=== PATIENT | female | born 1985 | race Caucasian/White ===

== ENCOUNTER 2022-07-01 09:37 | Outpatient (CLI) | payer BC, SELFPAY ==
[2022-07-01 14:39] LABS: Albumin* 3.8 g/dL (3.3-5.0); Chloride* 105 mmol/L (96-114); Potassium* 4.7 mmol/L (3.6-5.1); Sodium* 138 mmol/L (135-149)
[2022-07-01 14:41] LABS: Cholesterol* 174 mg/dL (90-199); Creatinine* 0.6 mg/dL (0.5-1.5); Estimated Glomerular Filt Rate 120 ml/min
[2022-07-01 14:42] LABS: Alanine Aminotransferase* 41 U/L (4-35); Alkaline Phosphatase* 95 U/L (40-150); Aspartate Amino Transferase* 31 U/L (12-35); Bilirubin Total* 0.4 mg/dL (0.1-1.5); Blood Urea Nitrogen* 7 mg/dL (5-24); Calcium* 8.7 mg/dL (8.4-10.6); Carbon Dioxide* 24 mmol/L (20-32); Glucose* 93 mg/dL (60-115); Total Protein* 6.7 g/dL (6.0-8.3); Triglycerides* 139 mg/dL (40-149)
[2022-07-01 14:43] LABS: HDL Cholesterol* 38 mg/dL (>=50); LDL Cholesterol Calculated 108 mg/dL (<100)
[2022-07-01 15:10] LABS: TSH With Reflex to FT4* 0.817 uIU/mL (0.270-4.200)
== END 2022-07-01 09:38 | disposition home or self-care (01) ==
PROVIDERS: PCP Family Medicine; Visit Provider Family Medicine
DX: R06.00 Dyspnea, unspecified (principal); F41.9 Anxiety disorder, unspecified; Z13.29 Encounter for screening for other suspected endocrine disorder; Z13.6 Encounter for screening for cardiovascular disorders
CPT/HCPCS: 80053; 80061; 84443

== ENCOUNTER 2024-01-29 16:17 | Outpatient (CLI) | payer BC, SELFPAY | END 2024-01-29 16:18 | disposition home or self-care (01) | PROVIDERS: PCP Family Medicine; Visit Provider Internal Medicine | DX: H57.89 Other specified disorders of eye and adnexa (principal) | CPT/HCPCS: 80053; 84443; 86039 ==

== ENCOUNTER 2024-02-15 15:43 | Outpatient (CLI) | payer BC, SELFPAY ==
--- OUTSIDE RECORDS SUMMARY | 2024-02-16 07:05 | XMS_ITS | Referral Summary ---
Author Name Unknown Organization [facility] Address [address] [place] [address] Care Team Providers Care Undercollar Baster Name Role Phone Unknown, [facility], Unknown Unavailable Unavailable Allergies Active Allergy Reactions Criticality Noted Date Comments Kiwi Hives 08/15/2017 Seafood (Aurelio) Anaphylaxis 08/15/2017 Shell Fish Medications Medication Sig Dispensed Refills Start Date End Date Status fluticasone 250 mcg-salmeterol 50 mcg (ADVAIR) 250-50 mcg/dose Inhl DsDv diskus inhaler Inhale 1 puff Twice a Day. Active fluticasone (FLONASE) 50 mcg/actuation nasal spray Instill 2 sprays into EACH nare once daily. Active albuterol, conc: 2.5mg/3mL, (PROVENTIL, VENTOLIN) 2.5 mg /3 mL (0.083 %) Inhl nebulizer solution Inhale 2.5 mg every 6 (six) hours as needed. Active montelukast (SINGULAIR) 10 mg oral tablet Take 10 mg by mouth at bedtime. Active omeprazole (PRILOSEC) 20 mg oral delayed release capsule Take 20 mg by mouth once daily. Active PHENTERMINE HCL (PHENTERMINE ORAL) Take 37.5 mg by mouth once daily. Active albuterol HFA (PROVENTIL;VENTOLIN HFA) 90 mcg/actuation Inhl inhaler Inhale 2 puffs every 4 (four) hours as needed. Active cetirizine (ZYRTEC) 10 mg oral tablet Take 10 mg by mouth once daily. Active multivitamin (CERTAVITE) 18-400 mg-mcg oral tablet Take 1 tablet by mouth once daily. Active sertraline (ZOLOFT) 50 mg oral tablet Take 50 mg by mouth once daily. Active oxyCODONE-acetaminoph en (PERCOCET) 5-325 mg oral tablet Take 1-2 tablets by mouth every 4 (four) hours as needed for Pain 30 tablet 08/16/2017 Active Active Problems Problem Noted Date Diagnosed Date Menorrhagia with irregular cycle 08/16/2017 Severe dysmenorrhea 08/16/2017 Social History Tobacco Use Types Packs/Day Years Used Date Smoking Tobacco: Never Smokeless Tobacco: Never Alcohol Use Standard Drinks/Week Comments Yes 1 (1 standard drink = 0.6 oz pur e alcohol) Sex and Gender Information Value Date Recorded Sex Assigned at Not on file Gender Identity Not on file Sexual Orientation Not on file Last Filed Vital Signs Vital Sign Reading Time Taken Comments Blood Pressure 128/68 08/16/2017 5:45 PM CDT Pulse 80 08/16/2017 5:45 PM CDT Temperature 36.8 ??C (98.2 ??F) 08/16/2017 5:45 PM CD T Respiratory Rate 16 08/16/2017 5:45 PM CDT Oxygen Saturation 100% 08/16/2017 5:45 PM CDT Inhaled Oxygen Concentration - - Weight 101.8 kg (224 lb 8 oz) 08/16/2017 12:48 P M CDT Height 154.9 cm (5' 1) 08/16/2017 12:48 PM CDT Body Mass Index 42.42 08/16/2017 12:48 PM CDT Plan of Treatment Not on file Insurance Payer Benefit Plan / Group Subscriber ID Effect angeline Dates Phone Address Type [facility] [id number] 10/30/2016-Preskahlil nt [address] [place] [phone] O Care Teams Undercollar Baster Relationship Specialty Start Date End Date Unknown, NO ADDRESS/PHONE/FAX AFFILIATED PCP - General 08/16/17 Clinic, Unknown [place] PCP - Primary Care Clinic 08/16/17
--- OUTSIDE RECORDS SUMMARY | 2024-02-16 07:05 | XMS_ITS | Encounter Summary ---
Author Name Unknown Organization [facility] Address [address] [place] [address] Care Team Providers Care Job Interviewer Name Role Phone Ino Sheriff APRN, CNP Primary Care Provid er Reason for Visit * Reason Comments ERRONEOUS ENTRY Encounter Details Date Type Department Care Team (Late st Contact Info) Description 11/10/2015 Telephone [facility] [address] [facility] [place] [address] Ino Sheriff APRN, AIRCONDITIONING PLANT OPERATOR [id number] [place] [address] ERRONEOUS ENTRY Social History Tobacco Use Types Packs/Day Years Used Date Smoking Tobacco: Never Assessed Comments Yes Sex and Gender Information Value Date Recorded Sex Assigned at Not on file Gender Identity Not on file Sexual Orientation Not on file documented as of this encounter Nursing Notes * Sheila Acevedo - 11/10/2015 1:14 PM CST error AND CREAM GRADER documented in this encounter Plan of Treatment Not on file documented as of this encounter Visit Diagnoses Not on filedocumented in this encounter Care Teams Job Interviewer Relationship Specialty Start Date End Date Ino Sheriff APRN, CNP [address] [id number] PCP - General 02/27/13 documented as of this encounter
--- OUTSIDE RECORDS SUMMARY | 2024-02-16 07:05 | XMS_ITS | Clinical Summary ---
Author Name Unknown Organization [facility] Address [place], [place] [address] Care Team Providers Care Car Park Attendant Name Role Phone Health, Family Primary Care Provider Un[facility] e Allergies Active Allergy Reactions Criticality Noted Date Comments Sulfamethoxazole-Trimethoprim Hives 2013 Shellfish Derived Anaphylaxis High 07/06/2017 Medications Medication Sig Dispensed Refills Start Date End Date Status montelukast (SINGULAIR) 10 mg tablet Take 1 tablet by mouth at bedtime. 0 08/23/2011 Active loratadine (CLARITIN) 10 mg tablet Take 1 tablet by mouth once daily. 0 08/23/2011 Active albuterol (PROVENTIL) 0.083 % neb solutionIndications:U nspecified asthma(493.90) Inhale 3 mL via a nebulizer every 6 hours if needed for Shortness Of Breath. 1 box 3 10/21/2014 Active albuterol HFA (PRO-AIR,VENTOLIN,PRO VENTIL) 90 mcg/actuation inhalerIndications:As thma with acute exacerbation Inhale 2 Puffs by mouth every 4 hours if needed. 2 Inhaler 1 11/28/2014 Active ADVAIR DISKUS 250-50 mcg/dose diskus inhalerIndications:As thma with acute exacerbation INHALE 1 PUFF EVERY 12 HOURS DIRECTED 120 g 12 02/11/2015 Active sertraline (ZOLOFT) 50 mg tablet Take 1 tablet by mouth every morning. Taking once daily 90 tablet 3 03/21/2018 Active Active Problems Problem Noted Date Diagnosed Date Unspecified asthma(493.90) 08/25/2011 Allergic rhinitis, cause unspecified 08/25/2011 Immunizations Name Administration Dates Next Due Tdap 10/08/2008 Family History Medical History Relation Name Comments Osteoarthritis Father Stroke Maternal Grandmother Fibromyalgia Mother Mental illness Mother dep/anx Osteoarthritis Mother Relation Name Status Comments Daughter Alive Father Alive ARthritis, fibr omyalgia Maternal Grandmother Mother Alive Arthritis, fibr omyalgia. Asthma Sister (Age age 25) MVA Social History Tobacco Use Types Packs/Day Years Used Date Smoking Tobacco: Never Smokeless Tobacco: Never Tobacco Cessation:Counseling Given: Yes Alcohol Use Standard Drinks/Week Comments No 0 (1 standard drink = 0.6 oz pur e alcohol) PHQ-2 Answer Date Recorded PHQ-2 Score 0 12/31/2018 Sex and Gender Information Value Date Recorded Sex Assigned at Not on file Gender Identity Not on file Sexual Orientation Not on file Obstetrics History Para Term AB IAB SAB Ectopic Multiple Livin g Live Births 1 Date Outcome GA Total Labor Labor/2nd/3rd Weight Sex Delivery Anes PTL Olinda A1 A5 Name Cl in Comments:System Genera joanna. Please review and update details. Last Filed Vital Signs Vital Sign Reading Time Taken Comments Blood Pressure 148/87 03/21/2018 1:19 PM CDT Pulse 85 03/21/2018 1:19 PM CDT Temperature 36.8 ??C (98.2 ??F) 03/21/2018 1:19 PM CD T Respiratory Rate 16 03/21/2018 1:19 PM CDT Oxygen Saturation 97% 03/21/2018 1:19 PM CDT Inhaled Oxygen Concentration - - Weight 108 kg (238 lb) 03/21/2018 1:19 PM CDT Height 154.9 cm (5' 1) 03/21/2018 1:19 PM CDT Body Mass Index 44.97 03/21/2018 1:19 PM CDT Plan of Treatment Health Maintenance Due Date Last Done Comments HIV for age 15-65 2001 Hepatitis C screening for age 18-79 2004 Pap test for age 21-65 11/14/2014 2 (Completed outside of [facility]) Tetanus booster 10/08/2018 10/08/2008 BMI (ht and wt on same day) for age 18+ 03/21/2019 03/21/2018, 07/06/2017 Depression screening for age 12+ 03/21/2019 03/21/2018, 03/21/2018 COVID-19 vaccine series ( season) 2023 Influenza for age 9-49 06/30/2024 Tdap Completed 10/08/2008 Pneumococcal series for age 6-64 Aged Out No longer eligible based on patient's age to complete this topic Care Teams Car Park Attendant Relationship Specialty Start Date End Date Health, Family PCP - General 07/06/17
--- OUTSIDE RECORDS SUMMARY | 2024-02-16 07:05 | XMS_ITS | Clinical Summary ---
Author Name Unknown Organization Replaced by [facility] Address [address] [place] [address] Care Team Providers Care Accounting Recruiter Name Role Phone Ino Sheriff APRN, CNP Primary Care Provid er Source Comments You are receiving this document as you are listed as the primary care provider,follow-up provider, or the patient has been referred to you for consultation.This is in compliance with the Medicare and[facility] Hospitalca[facility] EHR Incentive Program,which states Providers who transition their patient to another setting of careor provider of care or refers their patient to another provider of care shouldprovide summary care record for each transition of care or referral. [facility] Allergies Active Allergy Reactions Criticality Noted Date Comments Shellfish-Derived Products Anaphylaxis High 01/23/20 13 Sulfamethoxazole-Trimethoprim Hives High 2013 Medications Medication Sig Dispensed Refills Start Date End Date Status mometasone (NASONEX) 50 MCG/ACT nasal solution Place 2 sprays into each nostril daily (every 24 hours). 03/17/2014 Active Multiple Vitamins-Minerals (MULTIVITAMIN ADULT OR) Take 1 tablet by mouth daily (every 24 hours). 04/12/2016 Active ALBUterol sulfate HFA 108 (90 BASE) MCG/ACT inhalerIndications:Mod erate persistent asthma without complication (HRC) Inhale 2 Puffs every 4 hours as needed for Wheezing. 3 Inhaler 4 10/03/2016 Active Phentermine HCl 37.5 MG TBDP Active Cetirizine HCl (ZYRTEC ALLERGY OR) Active sertraline (ZOLOFT) 50 MG tablet 06/17/2017 Active omeprazole (PRILOSEC) 20 MG capsule 06/17/2017 Active cyclobenzaprine (FLEXERIL) 10 MG tablet Take 10 mg by mouth. 07/06/2017 Active montelukast (SINGULAIR) 10 MG tabletIndications:Mode rate persistent asthma without complication (HRC) Take 1 Tab by mouth daily at bedtime. 90 Tab 2017 Active fluticasone-salmeterol (ADVAIR DISKUS) 250-50 MCG/DOSE diskus inhalerIndications:Mod erate persistent asthma without complication (HRC) Inhale 1 Puff two times a day. 1 Inhaler 05/25/2018 Active fluconazole (DIFLUCAN) 150 MG tablet 1 po today then repeat in 2 days 2 Tablet 1 06/28/2019 Active Active Problems Problem Noted Date Diagnosed Date Female pelvic pain 06/28/2017 Allergic rhinitis 03/17/2014 Resolved Problems Problem Noted Date Diagnosed Date Resolved Date Encounter for supervision of other normal 10/06/2015 04/12/2016 Hx of secondary hypertension 06/17/2015 04/12/2016 Obesity complicating pregnan cy in first trimester 06/17/2015 04/12/2016 Previous delivery a ffecting , antepartum 06/17/2015 04/12/2016 Encounter for other general counseling or advice on contraception 04/30/2014 03/20/2015 Overview: Other general counseling and advice for contraceptive management delivery delivered 08/27/2013 03/20/2015 Hypertension complicating 06/24/2013 03/20/2015 , supervision, normal, first 02/05/2013 03/20/2015 Asthma complicating , antepartum 02/05/2013 03/20/2015 Immunizations Name Administration Dates Next Due Flu Vac Preserv Free (3+yrs) 08/16/2012 Influenza IIV4 (Quadrivalent) 0.5mL (46714) 08/30,08/12/2015,09/03/2013 TDAP (BOOSTRIX) 10/26/2015,04/22/2013 Family History Medical History Relation Name Comments High Cholesterol Father Depression Mother Alzheimer's Maternal Grandfather Cancer, Uterine Maternal Grandmother Stroke Maternal Grandmother Cancer Paternal Grandfather Colon Diabetes Paternal Grandfather Heart Disease Paternal Grandfather High Cholesterol Paternal Grandfather Stroke Paternal Grandfather Depression Sister Mental Disorder Sister Relation Name Status Comments Father Alive Mother Alive Maternal Grandfather Maternal Grandmother Paternal Grandfather Paternal Grandmother Alive Sister Social History Tobacco Use Types Packs/Day Years Used Date Smoking Tobacco: Never Smokeless Tobacco: Never Alcohol Use Standard Drinks/Week Comments Yes 0 (1 standard drink = 0.6 oz pur e alcohol) rare Sex and Gender Information Value Date Recorded Sex Assigned at Not on file Gender Identity Not on file Sexual Orientation Not on file Last Filed Vital Signs Vital Sign Reading Time Taken Comments Blood Pressure 129/72 06/28/2019 2:21 PM CDT Pulse 92 06/28/2019 2:21 PM CDT Temperature 37 ??C (98.6 ??F) 06/28/2017 2:43 PM CDT Respiratory Rate 16 06/26/2017 5:19 PM CDT Oxygen Saturation 96% 06/26/2017 5:19 PM CDT Inhaled Oxygen Concentration - - Weight 103.4 kg (228 lb) 06/28/2019 2:21 PM CDT Height 154.9 cm (5' 1) 07/07/2017 11:50 AM CDT Body Mass Index 43.08 07/07/2017 11:50 AM CDT Plan of Treatment Health Maintenance Due Date Last Done Comments Hep C Screening (Preventive Services) 1986 Adult Preventive Visit 2004 HepB (1) 2005 Cervical Cancer Screening 07/07/20202016, 06/17/2015, 12/07/2012 COVID-19 Vaccine ( season) 2023 12/25/2020, 11/26/2020 Influenza (#1) 2023 09/12/2019, 07/01, 09/14/2016, Additional history exists DTaP/Tdap/Td (5 - Tdap) 10/26/2025 10/26/20 15, 04/22/2013, 10/08/2008, Additional history exists Zoster/Shingles (1 of 2) 2036 HPV Vaccine Completed 03/18/2008, 08/30, 05/15/2007 Pneumococcal Aged Out 10/08/2008 No longer eligi ble based on patient's age to complete this topic HIV Screening (Preventive Services) Completed 06/17/2015, 12/07/2012 HepA Aged Out No longer eligi ble based on patient's age to complete this topic Hib Aged Out No longer eligi ble based on patient's age to complete this topic IPV (Polio) Aged Out No longer eligi ble based on patient's age to complete this topic MCV4 Aged Out No longer eligi ble based on patient's age to complete this topic Procedures Procedure Name Priority Date/Time Associated Diagnosis Comments ANATOMICAL PATH LIQUID BASED Routine 07/07/2017 12:57 PM CDT HIV ANTIBODY Routine 06/17/2015 8:37 AM CDT Special screening examination for other specified viral diseases from Last 3 Months or Most Recently Relevant to Health Maintenance Results * Pap Smear (07/07/2017 12:57 PM CDT) 07/07/2017 12:5 7 PM CDT Narrative PN SOFT - 07/11/2017 3:31 PM CDT FINAL GYNECOLOGICAL CYTOLOGY REPORT Pathology #: [id number] ?Date Obtained: 07/07/2017 ? Date Received: 07/10/2017 INTERPRETATION/RESULTS: Negative for Intraepithelial Lesion or Malignancy. 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 SPECIMEN ADEQUACY: Satisfactory for Evaluation. ??No endocervical cells/transformation zone component present. Verified on 07/11/2017 ??by FRANK DIEZ (electronic signature) CLINICAL NOTES: ?Abnormal bleeding: No, LMP: 06/13/2017, Menstrual status: None ?Apply, Current form of therapy: None apply LIQUID BASED PAP SMEAR SPECIMEN TYPE: ?ROUTINE CERVICAL PAP TEST PLEASE NOTE: The pap smear is a screening test designed to aid in the detection of cervical cancer and its precursor lesions. It is not a diagnostic procedure and should not be used as the sole means of detecting cervical cancer. Both false-positive and false-negative reports may occur. Performed at [address] [address] Jeniffer Salcido MD LAB_1 Performing Organization Address [facility] de Phone Number PN MICHELLE [address] [place] [phone] * HIV ANTIBODY (06/17/2015 8:37 AM CDT) HIV 1/HIV 2 Non-React Non-Reacti ve HP CONVERSION 06/17/2015 8:37 AM CDT 06/17/2015 4:33 PM CDT Narrative HP CONVERSION - 06/17/2015 11:33 PM CDT Performed at [address] [address] Transcriptions 12/08/2016 4:35 AM CSTNotes Recorded by Anahi Loomis APRN, CNP on 06/18/2015 at 5:35 PMplease send normal results to LD. Pt will be informed at next visit Anahi Loomis APRN, CNP LAB_1 Performing Organization Address [facility] de Phone Number HP CONVERSION from Last 3 Months or Most Recently Relevant to Health Maintenance Care Teams Accounting Recruiter Relationship Specialty Start Date End Date Ino Sheriff, YEHUDA, SECURITY ASSURANCE SPECIALIST [address] [address] [place] [address] [facility] - General 02/27/13
--- OUTSIDE RECORDS SUMMARY | 2024-02-16 07:05 | XMS_ITS | Clinical Summary ---
Author Name Unknown Organization [facility] Address [address] [place] [address] Care Team Providers Care Spark Tester Name Role Phone Unknown, [facility], Unknown Unavailable Unavailable Allergies [...] 08/16/2017 12:48 PM CDT Plan of Treatment Health Maintenance Due Date Last Done Comments Hepatitis C Screening 1986 Pap Smear 1986 Anxiety Screening (BRANDT-2) 1987 Depression Assessment (PHQ-2) 1987 Adult Tetanus Booster 2005 COVID-19 Vaccine (2022-2 4 season) 2023 Influenza Vaccine (Season Ended) 2024 Pneumococcal <65 Aged Out No longer e ligible based on patient's age to complete this topic Insurance Payer Benefit Plan / Group Subscriber ID Effect angeline Dates Phone Address Type ALECIA Hinge [facility] ALECIA [id number] 10/30/2016-Prese nt [address] [place] [phone] PPO Care Teams Spark Tester Relationship Specialty Start Date End Date Unknown, NO ADDRESS/PHONE/FAX AFFILIATED PCP - General 08/16/17 Clinic, Unknown [place] PCP - Primary Care Clinic 08/16/17
== END 2024-02-15 15:44 | disposition home or self-care (01) ==
LOC: NFLDREF 02-16 07:01
PROVIDERS: PCP Family Medicine; Referring Provider Family Medicine; Visit Provider Internal Medicine
DX: H57.89 Other specified disorders of eye and adnexa (principal)
CPT/HCPCS: 86376; 86800

== ENCOUNTER 2024-02-28 16:24 | Outpatient (CLI) | payer BC, SELFPAY ==
--- OUTSIDE RECORDS SUMMARY | 2024-02-28 16:27 | XMS_ITS | Clinical Summary ---
Author Name Unknown Organization [facility] Address [place], [place] [address] Care Team Providers Care Radio Performer Name Role Phone Health, Family Primary Care [...] age to complete this topic Care Teams Radio Performer Relationship Specialty Start Date End Date Health, Family PCP - General 07/06/17
--- OUTSIDE RECORDS SUMMARY | 2024-02-28 16:27 | XMS_ITS | Encounter Summary ---
Author Name Unknown Organization [facility] Address [address] [place] [address] Care Team Providers Care Agricultural Research Director Name Role Phone Ino Sheriff APRN, CNP Primary Care Provid er Reason for Visit * Reason Comments ERRONEOUS ENTRY Encounter Details Date Type Department Care Team (Late st Contact Info) Description 11/10/2015 Telephone [facility] [address] [facility] [place] [address] Ino Sheriff APRN, FORENSIC MATERIALS ENGINEER [address] [address] [place] [address] ERRONEOUS ENTRY Social History Tobacco Use Types Packs/Day Years Used Date Smoking Tobacco: Never Assessed Comments Yes Sex and Gender Information Value Date Recorded Sex Assigned at Not on file Gender Identity Not on file Sexual Orientation Not on file documented as of this encounter Nursing Notes * Sheila Acevedo - 11/10/2015 1:14 PM CST error RMAN PRESIDENT AND CHIEF EXECUTIVE OFFICER documented in this encounter Plan of Treatment Not on file documented as of this encounter Visit Diagnoses Not on filedocumented in this encounter Care Teams Agricultural Research Director Relationship Specialty Start Date End Date Ino Sheriff APRN, CNP [address] [address] [place] [id number] PCP - General 02/27/13 documented as of this encounter
--- OUTSIDE RECORDS SUMMARY | 2024-02-28 16:27 | XMS_ITS | Clinical Summary ---
Author Name Unknown Organization [facility] Address [address] [place] [address] Care Team Providers Care Real Estate Valuer Name Role Phone Unknown, [facility], Unknown Unavailable Unavailable Allergies [...] Effect angeline Dates Phone Address Type [employer]LECIA Zscaler [facility] ALECIA [id number] 10/30/2016-Prese nt [address] [place] [phone] PPO Care Teams Real Estate Valuer Relationship Specialty Start Date End Date Unknown, NO ADDRESS/PHONE/FAX AFFILIATED PCP - General 08/16/17 Clinic, Unknown [place] PCP - Primary Care Clinic 08/16/17
--- OUTSIDE RECORDS SUMMARY | 2024-02-28 16:27 | XMS_ITS | Referral Summary ---
Author Name Unknown Organization [facility] Address [address] [place] [address] Care Team Providers Care Risk Management Director Name Role Phone Unknown, Primary Care [facility], Unknown Unavailable Unavailable Allergies Active [...] ID Effect angeline Dates Phone Address Type [facility] [id number] 10/30/2016-Preskahlil nt [address] [place] [phone] O Care Teams Risk Management Director Relationship Specialty Start Date End Date Unknown, NO ADDRESS/PHONE/FAX AFFILIATED PCP - General 08/16/17 Clinic, Unknown [place] PCP - Primary Care Clinic 08/16/17
--- OUTSIDE RECORDS SUMMARY | 2024-02-28 16:27 | XMS_ITS | Clinical Summary ---
Author Name Unknown Organization [facility] Address [address] [place] [address] Care Team Providers Care Wool Supplier Name Role Phone Ino Sheriff APRN, CNP Primary Care Provid er Source Comments You are receiving this document as you are listed as the primary care provider,follow-up provider, or the patient has been referred to you for consultation.This is in compliance with the Medicare and[facility] Cent[facility]aid EHR Incentive Program,which states Providers who transition their patient to another setting of careor provider of care or refers their patient to another provider of care shouldprovide summary care record for each transition of care or referral. [facility] Allergies Active Allergy Reactions Criticality Noted Date [...] Free (3+yrs) 08/16/2012 Influenza IIV4 (Quadrivalent) 0.5mL (88632) 08/30,08/12/2015,09/03/2013 TDAP (BOOSTRIX) 10/26/2015,04/22/2013 Family History Medical [...] CDT FINAL GYNECOLOGICAL CYTOLOGY REPORT Pathology #: [id number] ?Date Obtained: 07/07/2017 ? Date Received: 07/10/2017 [...] and false-negative reports may occur. Performed at [address] [address] Jeniffer Salcido MD LAB_1 Performing Organization Address [facility] de Phone Number PN MICHELLE [address] [place] [phone] * HIV ANTIBODY (06/17/2015 8:37 AM CDT) HIV 1/HIV 2 Non-React Non-Reacti ve HP CONVERSION 06/17/2015 8:37 AM CDT 06/17/2015 4:33 PM CDT Narrative HP CONVERSION - 06/17/2015 11:33 PM CDT Performed at [address] [address] Transcriptions 12/08/2016 4:35 AM CSTNotes Recorded by Anahi Loomis APRN, CNP on 06/18/2015 at 5:35 PMplease send normal results to LD. Pt will be informed at next visit Anahi Loomis APRN, CNP LAB_1 Performing Organization Address [facility] de Phone Number HP CONVERSION from Last 3 Months or Most Recently Relevant to Health Maintenance Care Teams Wool Supplier Relationship Specialty Start Date End Date Ino Sheriff, YEHUDA, PROFESSOR SCULPTURE [address] [place] [address] [facility] - General 02/27/13
--- NOTE | 2024-02-28 17:00 | US_ITS ---
Patient: KEYA THRASHER Facility:?[facility] Patient ID:?[id number] Site Patient ID:?[id number]. Site :?1985 Study:?US-Thyroid THYROID-02/28/2024 4:55:08 PM Ordering Physician:?MAREN OCONNOR M.D. Final Report: INDICATION: Dysphagia COMPARISON: 11/17/2011 TECHNIQUE: Quiroz scale and color Doppler images were acquired of the thyroid gland. FINDINGS: The thyroid gland demonstrates mildly heterogeneous echogenicity and has a smooth outer contour. Tiny cystic nodules are present bilaterally. The isthmus measures 5.8 millimeters. The right lobe measures 5.0 x 1.5 x 2.1 cm and the left lobe measures 4.7 x 1.7 x 2.1 cm in size. The color Doppler images demonstrate normal vascularity. There is no evidence of cervical lymphadenopathy or parathyroid mass. IMPRESSION: No thyromegaly or suspicious thyroid nodule. Dictated by Alex Oropeza MD @ 02/29/2024 10:15:57 AM Signed by:?Alex Oropeza MD @02/29/2024 10:15:57 AM (Electronic Signature)
== END 2024-02-28 16:25 | disposition home or self-care (01) ==
LOC: US 16:25
PROVIDERS: PCP Family Medicine; Visit Provider Family Medicine
DX: E04.1 Nontoxic single thyroid nodule (principal); R13.10 Dysphagia, unspecified
CPT/HCPCS: 76536

== ENCOUNTER 2024-07-13 18:10 | Emergency (ER) | payer BC, SELFPAY ==
[2024-07-13] VITALS (10 sets, daily range): BP systolic 137–157; BP diastolic 91–105; PULSE 74–92; RESP 16–18; TEMP 36.1; O2SAT 97–100; BMI 47.2
--- NOTE | 2024-07-13 18:51 | ED_ITS ---
HPI - Chest Pain General Chief Complaint: Chest Pain Stated Complaint: Chest pressure, short of breath, tightness in jaw Time Seen by Provider: 07/13/24 18:13 History of Present Illness HPI narrative: This 38-year-old female comes in reporting chest discomfort that is been occurring randomly on and off over the past week or 2. She states that it is not at all related to exertion. She can tolerate activity rather well without symptoms. She states that sometime she has awoke in the night with chest discomfort in her upper mid chest. She does experience some nausea and at times feels lightheaded. She also feels like it is difficult to breathe. She states that she does have a history of asthma symptoms but states that she does not feel like it is related to asthma. She also took a anxiety medicine that did not provide any relief. She states that she has had some reflux symptoms in the past and reports that these symptoms may be related to her GI track. She does not have any cardiac risk factors except she states that her mother did have heart disease but was older than age 55 when this began. Related Data Home Medications ?Medication ?Instructions ?Recorded ?Confirmed albuterol sulfate 2.5 mg/0.5 mL 2.5 mg inhalation .Q4H PRN 07/01/22 02/19/24 solution for nebulization cetirizine 10 mg tablet (Zyrtec) 10 mg PO QDAY 07/01/22 02/19/24 fluticasone propionate 50 1 spray intranasal QDAY 07/01/22 07/13/24 mcg/actuation nasal spray,suspension (Flonase Allergy Relief) ipratropium 0.5 mg-albuterol 3 mg 3 ml inhalation QID PRN 07/01/22 02/19/24 (2.5 mg base)/3 mL nebulization soln multivitamin 1 tab PO QDAY 07/01/22 02/19/24 loratadine 10 mg tablet (Allergy 10 mg PO DAILY 07/13/24 07/13/24 Relief (loratadine)) Previous Rx's ?Medication ?Instructions ?Recorded albuterol sulfate 90 mcg/actuation See Rx Instructions .Route 02/19/24 aerosol inhaler (Ventolin HFA) .COMPLEX #8.5 grams fluticasone 500 mcg-salmeterol 50 1 inh inhalation BID #60 ea 02/19/24 mcg/dose blistr powdr for inhalation (Advair Diskus) montelukast 10 mg tablet 10 mg PO QDAY #90 tabs 02/19/24 pantoprazole 20 mg tablet,delayed 20 mg PO DAILY #20 tabs 07/13/24 release (Protonix) Allergies Allergy/AdvReac Type Severity Reaction Status Date / Time carrot Allergy Severe Verified 07/13/24 18:18 kiwi Allergy Severe throat Verified 07/13/24 18:18 swelling shellfish derived Allergy Severe Anaphylaxis Verified 07/13/24 18:18 iodine Allergy Unknown Unknown Verified 07/13/24 18:15 Review of Systems Status of ROS Reports: 10 or more systems reviewed and unremarkable except as noted in History and below Narrative Constitutional: No fevers, no weight gain or loss. Eyes: No discharge. No vision changes. HENT: No congestion, no sore throat, no ear pain. Cardiovascular: No palpitations. Respiratory: No wheezes, no cough. Gastrointestinal: No abdominal pain, no vomiting, no diarrhea. Genitourinary: No dysuria, no hematuria. Musculoskeletal: Normal range of motion. Skin: No rashes, no pruritis. Neurological: No dizziness, weakness, sensory change, speech change. Endo/Heme/Allergies: No bruising or bleeding. No polydipsia. Pysch: no suicidality, no anxiety, no insomnia. All other systems reviewed and are negative. [facility] Medical History (Updated 07/13/24 @ 19:53 by Warren Cueva MD) GERD (gastroesophageal reflux disease) ?K21.9 - Gastro-esophageal reflux disease without esophagitis (ICD-10) Eye swelling ?H57.89 - Other specified disorders of eye and adnexa (ICD-10) Thyroid nodule ?E04.1 - Nontoxic single thyroid nodule (ICD-10) Obesity ?E66.9 - Obesity, unspecified (ICD-10) Seasonal allergies ?J30.2 - Other seasonal allergic rhinitis (ICD-10) Surgical History (Updated 01/26/24 @ 11:16 by Cindy Galloway) History of 2 sections ?Z98.891 - History of uterine scar from previous surgery (ICD-10) Status post hysterectomy ?Z90.710 - Acquired absence of both cervix and uterus (ICD-10) Status post cholecystectomy (09/02/06) ?Z90.49 - Acquired absence of other specified parts of digestive tract (ICD- 10) Status post appendectomy ?Z90.49 - Acquired absence of other specified parts of digestive tract (ICD- 10) Family History (Updated 01/26/24 @ 11:09 by Cindy Galloway) Father High cholesterol Mother Depression Other Colon cancer Diabetes Social History (Updated 02/20/24 @ 13:04 by Lizzette Peng~[facility], HORTICULTURE SUPERVISOR) What is your current living situation?: I presently have a place to live Problems where you live: no known problems In the past 12 months, utilities in danger of being shut off: no In past 12 months, lack of transportation kept you from medical appts, meetings, work, or getting things needed for daily living: no In the past 12 mos, have been you worried that your food would run out before you had money to buy more?: never true In the past 12 mos, the food you bought just didn't last and you didn't have money to buy more?: never true Smoking Status: Never smoker How often does anyone, including family, friends and others, physically hurt you : never How often does anyone, including family, friends and others, insult or talk down to you: never How often does anyone, including family, friends and others, threaten you with harm: never How often does anyone, including family, friends and others, scream or curse at you: never Little interest or pleasure in doing things: not at all Feeling down, depressed, or hopeless: not at all Exam Narrative Exam Narrative: Constitutional: Well-developed, well-nourished, no acute distress. HEENT: Normocephalic, atraumatic. Neck: Normal range of motion. Nontender. Supple. Heart: Regular. No murmurs. Normal rate. Intact distal pulses. Lungs: Clear to auscultation. No chest discomfort. No wheezes, rhonchi, or rales. Abdomen: Normal bowel sounds. Nontender. No rebound tenderness. Genitalia: Deferred. Back: No midline tenderness. Normal range of motion. Extremities: Normal range of motion. No injury. Skin: Intact. No rash. Warm. No erythema or pallor. Neurologic: No altered sensation. No weakness. Alert and oriented. Psychiatric: No suicidality. No anxiety or depression. No insomnia. Nursing notes and vitals signs are reviewed. Const Vital Signs, click to edit/add: Vital Signs - 24 hr 07/13/24 18:18 Temperature 97 F L Pulse Rate [Pulse Oximeter] 81 Respiratory Rate 18 Blood Pressure [Right Forearm] 145/103 H Pulse Oximetry 100 Oxygen Delivery Method Room Air Course Vital Signs Vital signs: Initial Vital Signs Temperature 97 F L 07/13/24 18:18 Temperature Source Temporal Artery Scan 07/13/24 18:18 Pulse Rate 81 07/13/24 18:18 Pulse Rhythm Regular 07/13/24 18:18 Respiratory Rate 18 07/13/24 18:18 Blood Pressure 145/103 H 07/13/24 18:18 Blood Pressure Mean 117 H 07/13/24 18:18 Blood Pressure Position Semi-Fowlers 07/13/24 18:18 Pulse Oximetry 100 07/13/24 18:18 Oxygen Delivery Method Room Air 07/13/24 18:18 Vital Signs Temperature 97 F L 07/13/24 18:18 Pulse Rate 81 07/13/24 18:18 Respiratory Rate 18 07/13/24 18:18 Blood Pressure 145/103 H 07/13/24 18:18 Pulse Oximetry 100 07/13/24 18:18 Oxygen Delivery Method Room Air 07/13/24 18:18 Temperature 97 F L 07/13/24 18:18 Pulse Rate 81 07/13/24 18:18 Respiratory Rate 18 07/13/24 18:18 Blood Pressure 145/103 H 07/13/24 18:18 Pulse Oximetry 100 07/13/24 18:18 Oxygen Delivery Method Room Air 07/13/24 18:18 MDM - Chest Pain MDM Narrative Medical decision making narrative: This 38-year-old female reports some intermittent chest pains as described above. She is not displaying any kind of exertional symptoms and currently has normal vital signs and normal exam. Her pain is not reproducible and is is located in her upper central chest typically. She does wonder if it may be some reflux symptoms. EKG shows normal sinus rhythm. Labs are a also acquired and these all returned with normal results including a troponin that returns at 0. I also used bedside ultrasound to do screening looks at her heart and lungs and these findings were also completely normal. This was reassuring to the patient. She is okay to be discharged home and encouraged use [id number] medicines as needed and directed. Lab Data Labs: Lab Results 07/13/24 Range/Units 19:00 WBC 9.78 (4.50-11.00) K/uL RBC 4.97 (4.00-5.20) m/uL Hgb 13.7 (12.0-16.0) gm/dL Hct 41.9 (33.0-51.0) % MCV 84 (80-100) fL MCH 28 (26-34) pg MCHC 33 (32-36) gm/dL RDW Coeff of Ross 13.2 (11.5-15.5) % Plt Count 115 L (140-440) K/uL Neut % (Auto) 65.3 (42.0-72.0) % Lymph % (Auto) 26.2 (20-44) % [place] % (Auto) 5.3 (0.0-11.0) % Eos % (Auto) 2.4 (0.0-7.0) % Baso % (Auto) 0.5 (0.0-3.0) % Neut # (Auto) 6.39 (1.7-7.0) K/uL Lymph # (Auto) 2.56 (0.90-2.90) K/uL [place] # (Auto) 0.50 (0.00-0.90) K/UL Eos # (Auto) 0.23 (0.00-0.50) K/uL Baso # (Auto) 0.05 (0.00-0.30) K/uL Abs Immat Gran (auto) 0.03 (0.00-0.30) K/uL Imm/Tot Granulo (auto) 0.3 % Sodium 140 (135-149) mmol/L Potassium 3.7 (3.6-5.1) mmol/L Chloride 105 (96-114) mmol/L Carbon Dioxide 26 (20-32) mmol/L Anion Gap 9 (7-15) mEq/L BUN 11 (5-24) mg/dL Creatinine 0.6 (0.5-1.5) mg/dL Estimated Creat Clear 96.87 Estimated GFR 118 ml/min Glucose 95 (60-115) mg/dL Calcium 8.6 (8.4-10.6) mg/dL POC Troponin I 0.00 L (0.01-0.04) ng/ml ECG Data Attestation: I personally reviewed and interpreted this ECG as follows: Interpretation: Normal sinus rhythm. Rate is 76 beats per minute. There are no ST or T-wave abnormalities. Discharge Plan Discharge Clinical Impression: Atypical chest pain Patient Disposition: Home, Self-Care Condition: Stable Additional Instructions: Use omis-rkw-ilnvjrl medicines as needed and directed. Take Protonix as prescribed. Activity as tolerated. Follow up with MD return if worsening. Prescriptions: New pantoprazole [Protonix] 20 mg tablet,delayed release (DR/EC) 20 mg PO DAILY Qty: 20 2RF No Action ipratropium-albuterol 0.5 mg-3 mg(2.5 mg base)/3 mL solution for nebulization 3 ml inhalation QID PRN albuterol sulfate 2.5 mg/0.5 mL solution for nebulization 2.5 mg inhalation .Q4H PRN Rx Instructions: for up to 3 doses fluticasone propionate [Flonase Allergy Relief] 50 mcg/actuation s pray,suspension 1 spray intranasal QDAY Rx Instructions: administer into each nostril multivitamin Tablet 1 tab PO QDAY cetirizine [Zyrtec] 10 mg tablet 10 mg PO QDAY albuterol sulfate [Ventolin HFA] 90 mcg/actuation HFA aerosol inhaler See Rx Instructions .ROUTE .COMPLEX Qty: 8.5 3RF Dose Instruction: INHALE 2 PUFFS EVERY 4 HOURS NEEDED Rx Instructions: INHALE 2 PUFFS EVERY 4 HOURS NEEDED fluticasone propion-salmeterol [Advair Diskus] 500-50 mcg/dose blister with device 1 inh inhalation BID Qty: 60 11RF montelukast 10 mg tablet 10 mg PO QDAY Qty: 90 3RF loratadine [Allergy Relief (loratadine)] 10 mg tablet 10 mg PO DAILY Follow Up/Referrals: Warren Morataya MD [Primary Care Provider] - Stand Alone [facility]: [facility] Info Instructions Procedures Ultrasound Cardiac exam #1: Anatomical areas examined: subxiphoid, parasternal long and parasternal short Indications: chest pain Exam type: limited transthoracic echocardiogram Impression: negative exam
--- OUTSIDE RECORDS SUMMARY | 2024-07-13 18:55 | XMS_ITS | Clinical Summary ---
Author Organization [place] Address [address] [facility] [address] Care Team Providers Care Chief Mate Name Role Phone Richard Bustamante MD Unavailable [phone] Janes Franklin MD Unavailable Francisco Elizalde MD Primary Care Provider Janes Franklin MD Unavailable [phone] Allergies Active Allergy Reactions Criticality Noted Date Comments Shellfish Allergy Anaphylaxis High 05/16/2013 Medications Medication Sig Dispensed Refills Start Date End Date Status Montelukast Sodium (SINGULAIR PO) Active Fluticasone-Salmetero l (ADVAIR DISKUS IN) Acti ve Cetirizine HCl (ZYRTEC PO) Active fluticasone (FLONASE) 50 MCG/ACT nasal spray [place] 2 sprays into both nostrils daily Active Active Problems Problem Noted Date Diagnosed Date Indication for care in labor or delivery 016 Labor and delivery, indication for care 12/25/19 16 Resolved Problems Problem Noted Date Diagnosed Date Resolved Date Encounter for triage in patient 12/03/2015 12/25/2015 Abdominal cramping 11/21/2015 6 Indication for care in labor and delivery, antepartum 07/10/2013 12/25/2015 Indication for care in labor or delivery 06/30/2013 12/25/2015 labor 05/16/2013 12/25/2015 Immunizations Name Administration Dates Next Due Influenza Vaccine >6 months,quad, PF 08/12/2015 TDAP (Adacel,Boostrix) 10/26/2015 Family History Medical History Relation Comments Glaucoma No family hx of Macular Degeneration No family hx of Social History Tobacco Use Types Packs/Day Years Used Date Smoking Tobacco: Never Smokeless Tobacco: Never Tobacco Cessation:Counseling Given: No Alcohol Use Standard Drinks/Week Comments No 0 (1 standard drink = 0.6 oz pur e alcohol) Adolescent Education Answer Date Record ed Getting School Help Needed Not on file 02/25 Sex and Gender Information Value Date Recorded Sex Assigned at Not on file Gender Identity Not on file Sexual Orientation Not on file Last Filed Vital Signs Vital Sign Reading Time Taken Comments Blood Pressure 137/68 04/15/2016 10:00 PM CDT Pulse 73 04/15/2016 8:36 PM CDT Temperature 36.3 ??C (97.3 ??F) 04/15/2016 8:36 PM CD T Respiratory Rate 16 04/15/2016 10:0 6 PM CDT Oxygen Saturation 97% 04/15/2016 10: 00 PM CDT Inhaled Oxygen Concentration - - Weight 110.3 kg (243 lb 3.2 oz) 01/15/2016 3:00 PM CDT Height 154.9 cm (5' 1) 01/15/2016 3:00 PM CDT Body Mass Index 45.95 01/15/2016 3:00 PM CDT Plan of Treatment Health Maintenance Due Date Last Done Comments ADVANCE CARE PLANNING 1986 ANNUAL REVIEW OF HM ORDERS 1986 GLUCOSE 1986 YEARLY PREVENTIVE VISIT 1986 HEPATITIS C SCREENING 2004 HEPATITIS B IMMUNIZATION (1 of 3 - 19+ 3-dose series) 2005 PAP 2007 COVID-19 Vaccine ( season) 2024 12/25/2020, 11/26/2020 INFLUENZA VACCINE (#1) 2024 9, 07/27/2017, 09/14/2016, Additional history exists DTAP/TDAP/TD IMMUNIZATION (5 - Td or Tdap) 10/26/2025 10/26/2015, 04/22/2013, 10/08/2008, Additional history exists HPV IMMUNIZATION Completed 03/18/2008, , 05/15/2007 Pneumococcal Vaccine: Pediatrics (0 to 5 Years) and At-Risk Patients (6 to 64 Years) Aged Out 10/08/2008 No longer eligible based on patient's age to complete this topic HIV SCREENING Completed 06/17/2015, 12/07/2012 PHQ-2 (once per calendar year) Completed 03/20/2024 MENINGITIS IMMUNIZATION Aged Out No l onger eligible based on patient's age to complete this topic RSV MONOCLONAL ANTIBODY Aged Out No l onger eligible based on patient's age to complete this topic Procedures Procedure Name Priority Date/Time Associated Diagnosis Comments HIV ANTIGEN ANTIBODY COMBO Routine 06/17/2015 from Last 3 Months or Most Recently Relevant to Health Maintenance Results * HIV Antigen Antibody Combo (06/17/2015) HIV Antigen Antibody Combo Nonreactive Blood specimen (specimen) Patient Reported LAB - BLOOD ORDERABL ES from Last 3 Months or Most Recently Relevant to Health Maintenance Care Teams Chief Mate Relationship Specialty Start Date End Date Francisco Elizalde MD [facility] [address] [place] [address] PCP - General 03/19/24 Richard Busatmante MD [facility] [address] [place] [address] Family Medicine 02/23/24 Janes Franklin MD [address] [place] [id number] Ophthalmology 02/29/24 Janes Franklin MD [address] [place] [id number] Assigned Surgical Provider 04/21/24
--- OUTSIDE RECORDS SUMMARY | 2024-07-13 18:55 | XMS_ITS | Clinical Summary ---
Author Organization [facility] Address [place], [place] [address] Care Team Providers Care Tinner Automatic Name Role Phone Health, Family Primary Care [...] Outcome GA Total Labor Labor/2nd/3rd Weight Sex Type Anes PTL Olinda A1 A5 Name Clin Comments:System Genera joanna. Please review and update [...] 03/21/2018, 03/21/2018 COVID-19 vaccine series ( season) 2024 Influenza for age 9-49 06/30/2024 Tdap Completed 10/08/2008 Pneumococcal series for age 6-64 Aged Out No longer eligible based on patient's age to complete this topic Care Teams Tinner Automatic Relationship Specialty Start Date End Date Health, Family PCP - General 07/06/17
--- OUTSIDE RECORDS SUMMARY | 2024-07-13 18:55 | XMS_ITS | Clinical Summary ---
Author Organization [facility] Address [address] [place] [address] Care Team Providers Care Substance Abuse Clinician Name Role Phone Ino Sheriff APRN, CNP Primary Care Provid er Source Comments You are receiving this document as you are listed as the primary care provider,follow-up provider, or the patient has been referred to you for consultation.This is in compliance with the Medicare and[facility] EHR Incentive Program,which states Providers who transition their patient to another setting of careor provider of care or refers their patient to another provider of care shouldprovide summary care record for each transition of care or referral. Closetbox Allergies Active Allergy Reactions Criticality Noted Date [...] counseling or advice on contraception 04/30/2014 03/20/2015 Overview (06/21/2017): Other general counseling and advice for contraceptive management delivery delivered 08/27/2013 03/20/2015 Hypertension complicating 06/24/2013 03/20/2015 , supervision, normal, first 02/05/2013 03/20/2015 Asthma complicating , antepartum 02/05/2013 03/20/2015 Immunizations Name Administration Dates Next Due Flu Vac Preserv Free (3+yrs) 08/16/2012 Influenza IIV4 (Quadrivalent) 0.5mL (69819) 08/30,08/12/2015,09/03/2013 TDAP (BOOSTRIX) 10/26/2015,04/22/2013 Family History Medical [...] 07/07/20202016, 06/17/2015, 12/07/2012 COVID-19 Vaccine ( season) 2024 12/25/2020, 11/26/2020 Influenza (#1) 2024 09/12/2019, 07/01, 09/14/2016, Additional history exists DTaP/Tdap/Td [...] CDT FINAL GYNECOLOGICAL CYTOLOGY REPORT Pathology #: [id number] ?Date Obtained: 07/07/2017 ? Date Received: 07/10/2017 [...] and false-negative reports may occur. Performed at [facility], [address] [place] [id number] Jeniffer Salcido MD LAB_1 Performing Organization Address [facility] de Phone Number PATITO MARTINEZ [address] [place] [address] * HIV ANTIBODY (06/17/2015 8:37 AM CDT) HIV 1/HIV 2 Non-React Non-Reacti ve HP CONVERSION 06/17/2015 8:37 AM CDT 06/17/2015 4:33 PM CDT Narrative HP CONVERSION - 06/17/2015 11:33 PM CDT Performed at [address] [address] Transcriptions 12/08/2016 4:35 AM CSTNotes Recorded by Anahi Loomis APRN, CNP on 06/18/2015 at 5:35 PMplease send normal results to LD. Pt will be informed at next visit Anahi Loomis APRN, CNP LAB_1 Performing Organization Address [facility] de Phone Number HP CONVERSION from Last 3 Months or Most Recently Relevant to Health Maintenance Care Teams Substance Abuse Clinician Relationship Specialty Start Date End Date Ino Sheriff APRN, SHAHRAM [address] [address] [address] [facility] - General 02/27/13
--- OUTSIDE RECORDS SUMMARY | 2024-07-13 18:55 | XMS_ITS | Referral Summary ---
Author Organization [place] Address [address] [place] [address] Care Team Providers Care City Auditor Name Role Phone Richard Bustamante MD Unavailable [phone] Janes Franklin MD Unavailable [phone] Francisco Elizalde MD Primary Care Provider Janes Franklin MD Unavailable [phone] Allergies Active Allergy Reactions Criticality Noted Date Comments Shellfish Allergy Anaphylaxis High 05/16/2013 Medications Medication Sig Dispensed Refills Start Date End Date Status Montelukast Sodium (SINGULAIR PO) Active Fluticasone-Salmetero l (ADVAIR DISKUS IN) Acti ve Cetirizine HCl (ZYRTEC PO) Active fluticasone (FLONASE) 50 MCG/ACT nasal spray [place] 2 sprays into both nostrils daily Active [...] >6 months,quad, PF 08/12/2015 TDAP (Adacel,Boostrix) 10/26/2015 Social History Tobacco Use Types Packs/Day Years [...] 01/15/2016 3:00 PM CDT Plan of Treatment Not on file Procedures Procedure Name Priority Date/Time Associated Diagnosis Comments HIV ANTIGEN ANTIBODY COMBO Routine 06/17/2015 from Last 3 Months or Most Recently Relevant to Health Maintenance Results * HIV Antigen Antibody Combo (06/17/2015) HIV Antigen Antibody Combo Nonreactive Blood specimen (specimen) Patient Reported LAB - BLOOD ORDERABL ES from Last 3 Months or Most Recently Relevant to Health Maintenance Care Teams City Auditor Relationship Specialty Start Date End Date Francisco Elizalde MD [facility] [address] [place] [address] PCP - General 03/19/24 Richard Bustamante MD [facility] [address] [place] [address] Family Medicine 02/23/24 Janes Franklin MD [address] [place] [address] Ophthalmology 02/29/24 Janes Franklin MD [address] [place], [place] [id number] Assigned Surgical Provider 04/21/24
--- OUTSIDE RECORDS SUMMARY | 2024-07-13 18:56 | XMS_ITS | Referral Summary ---
Author Organization [facility] Address [address] [place] [address] Care Team Providers Care Walnut Dehydrator Operator Name Role Phone Unknown, Primary Care Provider Unavailabl e Clinic, Unknown Unavailable Unavailable Allergies Active [...] ID Effect angeline Dates Phone Address Type [facility] [id number] 10/30/2016-Pres[place]ahl[place] nt [address] [place] [address] O Care Teams Walnut Dehydrator Operator Relationship Specialty Start Date End Date Unknown, NO ADDRESS/PHONE/FAX AFFILIATED PCP - General 08/16/17 Clinic, Unknown [place] PCP - Primary Care Clinic 08/16/17
--- OUTSIDE RECORDS SUMMARY | 2024-07-13 18:56 | XMS_ITS | Clinical Summary ---
Author Organization [facility] Address [address] [place] [address] Care Team Providers Care Digital Media Coordinator Name Role Phone Unknown, Primary Care Provider [...] 1987 Adult Tetanus Booster 2005 COVID-19 Vaccine ( - 2022-2 4 season) 2024 Influenza Vaccine (#1) 2024 Pneumococcal <65 Aged Out No longer e ligible based on patient's age to complete this topic Insurance Payer Benefit Plan / Group Subscriber ID Effect angeline Dates Phone Address Type [facility] [id number] 10/30/2016-Prese nt [address] [place] [phone] PPO Care Teams Digital Media Coordinator Relationship Specialty Start Date End Date Unknown, NO ADDRESS/PHONE/FAX AFFILIATED PCP - General 08/16/17 Clinic, Unknown [place] PCP - Primary Care Clinic 08/16/17
--- OUTSIDE RECORDS SUMMARY | 2024-07-13 18:56 | XMS_ITS | Encounter Summary ---
Author Organization [facility] Address [address] [place] [address] Care Team Providers Care Financial Intern Name Role Phone Ino Sheriff APRN, CNP Primary Care Provid er Reason for Visit * Reason Comments ERRONEOUS ENTRY Encounter Details Date Type Department Care Team (Late st Contact Info) Description 11/10/2015 Telephone [facility] [address] [facility] [place], [place] [id number] Ino Sheriff APRN, LEAD INSTRUCTOR/FLIGHT ATTENDANT [address] [address] [place] [address] ERRONEOUS ENTRY Social History Tobacco Use Types Packs/Day Years Used Date Smoking Tobacco: Never Assessed Comments Yes Sex and Gender Information Value Date Recorded Sex Assigned at Not on file Gender Identity Not on file Sexual Orientation Not on file documented as of this encounter Nursing Notes * Sheila Acevedo - 11/10/2015 1:14 PM CST error H ROUNDER MACHINE documented in this encounter Plan of Treatment Not on file documented as of this encounter Visit Diagnoses Not on filedocumented in this encounter Care Teams Financial Intern Relationship Specialty Start Date End Date Ino Sheriff APRN, CNP [address] [address] [phone] PCP - General 02/27/13 documented as of this encounter
[2024-07-13 19:08] LABS: Basophils Absolute Auto 0.05 K/uL (0.00-0.30); Basophils Percent Auto 0.5 % (0.0-3.0); Eosinophils Absolute Auto 0.23 K/uL (0.00-0.50); Eosinophils Percent Auto 2.4 % (0.0-7.0); Hematocrit 41.9 % (33.0-51.0); Hemoglobin* 13.7 gm/dL (12.0-16.0); Immature Granulocytes Abs Auto 0.03 K/uL (0.00-0.30); Immature Granulocytes Pct Auto 0.3 %; Lymphocytes Absolute Auto 2.56 K/uL (0.90-2.90); Lymphocytes Percent Auto 26.2 % (20-44); Mean Corpuscular HGB Conc 33 gm/dL (32-36); Mean Corpuscular Hemoglobin 28 pg (26-34); Mean Corpuscular Volume 84 fL (80-100); Monocytes Percent Auto 5.3 % (0.0-11.0); Neutrophils Absolute Auto 6.39 K/uL (1.7-7.0); Neutrophils Percent Auto 65.3 % (42.0-72.0); Platelet Count* 115 K/uL (140-440); RDW Coefficient of Variation % 13.2 % (11.5-15.5); Red Blood Count 4.97 m/uL (4.00-5.20); White Blood Count* 9.78 K/uL (4.50-11.00)
[2024-07-13 19:09] LABS: Slide Review Reflex No
[2024-07-13 19:19] LABS: Chloride* 105 mmol/L (96-114)
[2024-07-13 19:20] LABS: Potassium* 3.7 mmol/L (3.6-5.1); Sodium* 140 mmol/L (135-149)
[2024-07-13 19:23] LABS: Anion Gap 9 mEq/L (7-15); Blood Urea Nitrogen* 11 mg/dL (5-24); Calcium* 8.6 mg/dL (8.4-10.6); Carbon Dioxide* 26 mmol/L (20-32); Creatinine* 0.6 mg/dL (0.5-1.5); Est. Creatinine Clearance* 96.87; Estimated Glomerular Filt Rate 118 ml/min; Glucose* 95 mg/dL (60-115)
== END 2024-07-13 20:02 | disposition home or self-care (01) ==
PROVIDERS: Emergency Provider Emergency Medicine Emergency Medical Services; PCP Family Medicine
DX: R07.89 Other chest pain (principal)
CPT/HCPCS: 36415; 76604; 76705; 80048; 84484; 85025; 93308; 99284; 99285

== ENCOUNTER 2024-12-03 05:44 | Emergency (ER) | payer BC, SELFPAY ==
--- OUTSIDE RECORDS SUMMARY | 2024-12-03 05:46 | XMS_ITS | Referral Summary ---
Author Organization [facility] Address [address] [place] [address] Care Team Providers Care Flatware Maker Name Role Phone Unknown, Primary Care Provider Unavailabl e Clinic, Unknown Unavailable Unavailable Allergies Active Allergy Reactions Criticality Noted Date Comments Kiwi Hives 08/15/2017 Seafood (Aurelio) Anaphylaxis 08/15/2017 Shell Fish Medications fluticasone 250 mcg-salmeterol 50 mcg (ADVAIR) 250-50 [...] by mouth once daily. Active albuterol HFA (PROVENTIL;VENT KAMRAN HFA) 90 mcg/actuation Inhl inhaler Inhale 2 puffs every 4 (four) hours as needed. Active cetirizine (ZYRTEC) 10 mg oral tablet Take 10 mg by mouth once daily. Active multivitamin (CERTAVITE) 18-400 mg-mcg oral tablet Take 1 tablet by mouth once daily. Active sertraline (ZOLOFT) 50 mg oral tablet Take 50 mg by mouth once daily. Active oxyCODONE-aceta minophen (PERCOCET) 5-325 mg oral tablet Take 1-2 tablets by mouth every 4 (four) hours as needed for Pain 30 tablet 08/16/2017 5:11 PM CDT 08/16/2017 Active Active Problems Problem Noted Date Diagnosed Date Menorrhagia with irregular cycle 08/16/2017 Severe dysmenorrhea 08/16/2017 Social History Tobacco Use Types Packs/Day Years Used Date Smoking Tobacco: Never Smokeless Tobacco: Never Alcohol Use Standard Drinks/Week Comments Yes 1 (1 standard drink = 0.6 oz pur e alcohol) Comments Unknown Sex and Gender Information Value Date Recorded Sex Assigned at Not on file Legal Sex Female 11:50 AM CDT Gender Identity Not on file Sexual Orientation Not on file Last Filed Vital Signs Vital Sign Reading Time Taken Comments Blood Pressure 128/68 08/16/2017 5:45 PM CDT Pulse 80 08/16/2017 5:45 PM CDT Temperature 36.8 C (98.2 F) 08/16/2017 5:45 PM CDT Respiratory Rate 16 08/16/2017 5:45 PM CDT Oxygen Saturation 100% 08/16/2017 5:45 PM CDT Inhaled Oxygen Concentration - - Weight 101.8 kg (224 lb 8 oz) 08/16/2017 12:48 P M CDT Height 154.9 cm (5' 1) 08/16/2017 12:48 PM CDT Body Mass Index 42.42 08/16/2017 12:48 PM CDT Plan of Treatment Not on file Insurance [employer] [facility] [place] [id number] [place] [id number] Care Teams Flatware Maker Relationship Specialty Start Date End Date Unknown, NO ADDRESS/PHONE/FAX AFFILIATED PCP - General 08/16/17 Clinic, Unknown [place] PCP - Primary Care Clinic 08/16/17
--- OUTSIDE RECORDS SUMMARY | 2024-12-03 05:46 | XMS_ITS | Clinical Summary ---
[facility] Organization [facility] Address [address] [place] [address] Care Team Providers Care Mobile Homes Repairer Name Role Phone Ino Sheriff APRN, CNP Primary Care Provid er Source Comments You are receiving this document as you are listed as the primary care provider,follow-up provider, or the patient has been referred to you for consultation.This is in compliance with the Medicare and[facility] Hospital[facility] EHR Incentive Program,which states Providers who transition their patient to another setting of careor provider of care or refers their patient to another provider of care shouldprovide summary care record for each transition of care or referral. [employer] Allergies Active Allergy Reactions Criticality Noted Date [...] Free (3+yrs) 08/16/2012 Influenza IIV4 (Quadrivalent) 0.5mL (07764) 08/30,08/12/2015,09/03/2013 TDAP (BOOSTRIX) 10/26/2015,04/22/2013 Family History Medical [...] 92 06/28/2019 2:21 PM CDT Temperature 37 C (98.6 F) 06/28/2017 2:43 PM CDT Respiratory Rate 16 [...] CDT) 07/07/2017 12:5 7 PM CDT Narrative SOFT - 07/11/2017 3:31 PM CDT FINAL GYNECOLOGICAL CYTOLOGY REPORT Pathology #: [id number] Date Obtained: 07/07/2017 Date Received: 07/10/2017 INTERPRETATION/RESULTS: Negative for Intraepithelial Lesion or Malignancy. 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 SPECIMEN ADEQUACY: Satisfactory for Evaluation. No endocervical cells/transformation zone component present. Verified on 07/11/2017 by FRANK DIEZ (electronic signature) CLINICAL NOTES: Abnormal bleeding: No, LMP: 06/13/2017, Menstrual status: None Apply, Current form of therapy: None apply LIQUID BASED PAP SMEAR SPECIMEN TYPE: ROUTINE CERVICAL PAP TEST PLEASE NOTE: The pap smear is a screening test designed to aid in the detection of cervical cancer and its precursor lesions. It is not a diagnostic procedure and should not be used as the sole means of detecting cervical cancer. Both false-positive and false-negative reports may occur. Performed at [address] [address] Jeniffer Salcido MD LAB_[address] [address] * HIV ANTIBODY (06/17/2015 8:37 AM CDT) HIV 1/HIV 2 Non-React Non-Reacti ve HP CONVERSION 06/17/2015 8:37 AM CDT 06/17/2015 4:33 PM CDT Narrative HP CONVERSION - 06/17/2015 11:33 PM CDT Performed at [facility] [place] [address] Transcriptions 12/08/2016 4:35 AM CSTNotes Recorded by Anahi Loomis APRN, SHAHRAM on 06/18/2015 at 5:35 PMplease send normal results to LD. Pt will be informed at next visit Anahi Loomis APRN, CNP LAB_1 HP CONVERSION from Last 3 Months or Most Recently Relevant to Health Maintenance Care Teams Mobile Homes Repairer Relationship Specialty Start Date End Date Ino Sheriff APRN, MUSIC RESEARCHER [address] [facility] [address] [place] [address] PCP - General 02/27/13
--- OUTSIDE RECORDS SUMMARY | 2024-12-03 05:46 | XMS_ITS | Clinical Summary ---
Author Organization [facility] Address [place], [place] [address] Care Team Providers Care Cargo Operations Agent Name Role Phone Health, Family Primary Care Provider Unavailabl e Allergies Active Allergy Reactions Criticality Noted Date Comments Sulfamethoxazole-Trimethoprim Hives 2013 Shellfish Derived Anaphylaxis High 07/06/2017 Medications montelukast (SINGULAIR) 10 mg tablet Take 1 tablet by mouth at bedtime. 0 1 Active loratadine (CLARITIN) 10 mg tablet Take 1 tablet by mouth once daily. 0 1 Active albuterol (PROVENTIL) 0.083 % neb solutionIndicatio ns:Unspecified asthma(493.90) Inhale 3 mL via a nebulizer every 6 hours if needed for Shortness Of Breath. 1 box 3 4 Active albuterol HFA (PRO-AIR,VENTOLIN ,PROVENTIL) 90 mcg/actuation inhalerIndication s:Asthma with acute exacerbation Inhale 2 Puffs by mouth every 4 hours if needed. 2 Inhaler 1 5 Active ADVAIR DISKUS 250-50 mcg/dose diskus inhalerIndication s:Asthma with acute exacerbation INHALE 1 PUFF EVERY 12 HOURS DIRECTED 120 g 12 5 Active fluticasone (50 mcg per actuation) nasal solution (FLONASE) Inhale 2 Sprays into affected nostril(s). Active pantoprazole (PROTONIX) 20 mg tablet Take 1 Tablet by mouth once daily. 4 Active predniSONE (DELTASONE) 20 mg tabletIndications :Moderate persistent asthma with exacerbation Take 40 mg (2 tabs) daily for 3 days, then 20 mg (1 tab) daily for 3 days, then 10 mg (1/2 tab) daily for 4 days 11 Tablet 4 Active albuterol-ipratro pium (DUONEB) (2.5-0.5 mg) in 3 mL NEBULIZATION solutionIndicatio ns:Moderate persistent asthma with exacerbation Inhale 3 mL via a nebulizer every 6 hours if needed for Wheezing 1st choice. 75 mL 4 Active Active Problems Problem Noted Date Diagnosed Date Unspecified asthma(493.90) 08/25/2011 Allergic rhinitis, cause unspecified 08/25/2011 Encounters Date Type Department Care Team Description 10/26/2024 10:52 AM TILE DECORATOR - 10/26/2024 12:14 PM TILE DECORATOR Emergency [facility] [address] [place] [id number] Bertha Sepulveda PA Atypical pneumonia (Primary Dx); Moderate persistent asthma with exacerbation Discharge Disposition: Home Self Care 10/26/2024 Travel from Last 3 Months Immunizations Name Administration Dates Next Due Tdap [...] Answer Date Recorded PHQ-2 Score 0 12/31/2018 Interpersonal Safety Answer Date Record ed Are you being hit, kicked, p ushed or yelled at (see row info)? No 10/26/2024 Interpersonal Safety Abuse 12 - 18 Not on file 10/26/2024 Interpersonal Safety Ambulatory Vulnerability No t on file 10/26/2024 Comments No Sex and Gender Information Value Date Recorded Sex Assigned at Not on file Legal Sex Female 6:49 AM TILE DECORATOR Gender Identity Not on file Sexual Orientation Not on file Obstetrics History Para Term AB IAB SAB Ectopic Multiple Livin g Live Births 1 Date Outcome GA Total Labor Labor/2nd/3rd Weight Sex Type Anes PTL Olinda A1 A5 Name Clin Comments:System Genera joanna. Please review and update details. Last Filed Vital Signs Vital Sign Reading Time Taken Comments Blood Pressure 141/87 10/26/2024 10:59 AM TILE DECORATOR Pulse 99 10/26/2024 10:59 AM TILE DECORATOR Temperature 36.3 C (97.4 F) 10/26/2024 10:59 AM TILE DECORATOR Respiratory Rate 16 10/26/2024 10:59 AM TILE DECORATOR Oxygen Saturation 98% 10/26/2024 10:59 AM TILE DECORATOR Inhaled Oxygen Concentration - - Weight 117.5 kg (259 lb) 10/26/2024 10:59 AM TILE DECORATOR Height 154.9 cm (5' 1) 03/21/2018 1:19 PM CDT Body Mass Index 48.94 03/21/2018 1:19 PM CDT Plan of Treatment Health Maintenance Due Date Last Done Comments HIV for age 15-65 2001 Hepatitis C screening for age 18-79 2004 Pneumococcal series for age 6-49 (1 of 2 - PCV) 2005 Pap test for age 21-65 11/14/2014 2 [facility] Tetanus booster 10/08/2018 10/08/2008 BMI (ht and wt on same day) for age 18+ 03/21/2019 03/21/2018, 07/06/2017 Depression screening for age 12+ 03/21/2019 03/21/20 18, 03/21/2018 COVID-19 vaccine series ( season) 2024 12/25/2020, 11/26/2020 Influenza for age 9-49 06/30/2024 Tdap Completed 10/08/2008 Procedures Procedure Name Priority Date/Time Associated Diagnosis Comments XR CHEST 2 VIEWS PA AND LATERAL STAT 10/26/2024 11:31 AM TILE DECORATOR Atypical pneumonia Moderate persistent asthma with exacerbation from Last 3 Months Results * XR CHEST 2 VIEWS PA AND LATERAL (10/26/2024 11:31 AM TILE DECORATOR) Anatomical Region Laterality Modality CHEST, THORAX, Lung, HEART Compu joanna Radiography 10/26/2024 11:5 3 AM TILE DECORATOR Impressions 10/26/2024 11:53 AM TILE DECORATOR No acute findings. Dictated by James Franklin MD @ 10/26/2024 11:53:32 AM (Electronically Signed) Narrative 10/26/2024 11:53 AM TILE DECORATOR For Patients: As a result of the Cures Act, medical imaging exams and procedure reports are released immediately into your electronic medical record. You may view this report before your referring provider. If you have questions, please contact your health care provider. INDICATION: Cough and wheezing. Comparison 10/24/2014. TECHNIQUE: Chest 2 views. FINDINGS: Lungs are clear. No pleural effusions. No pneumothorax. Normal cardiomediastinal silhouette. No osseous abnormalities. Procedure Note James Franklin MD, PhD - 10/26/2024 For Patients: As a result of the Cures Act, medical imagingexams and procedure reports are released immediately into your electronicmedical record. You may view this report before your referring provider.If you have questions, please contact your health care provider. INDICATION: Cough and wheezing. Comparison 10/24/2014. TECHNIQUE: Chest 2 views. FINDINGS: Lungs are clear. No pleural effusions. No pneumothorax. Normal cardiomediastinal silhouette. No osseous abnormalities. IMPRESSION: No acute findings. Dictated by James Franklin MD @ 10/26/2024 11:53:32 AM (Electronically Signed) [facility] Final Resul t from Last 3 Months Insurance [place] [employer] Care Teams Cargo Operations Agent Relationship Specialty Start Date End Date Health, Family PCP - General 07/06/17
--- OUTSIDE RECORDS SUMMARY | 2024-12-03 05:46 | XMS_ITS | Clinical Summary ---
Author Organization [facility] Address [address] [place] [address] Care Team Providers Care Electronics Test Engineer Name Role Phone Unknown, Primary Care Provider [...] 1987 Adult Tetanus Booster 2005 COVID-19 Vaccine (2023-2 5 season) 2024 Influenza Vaccine (#1) 2024 RSV Vaccines (1 - 1-dose 75+ series) 2061 Pneumococcal Vaccine Aged Out No long er eligible based on patient's age to complete this topic Insurance [employer] [facility] [id number] [place] [id number] Care Teams Electronics Test Engineer Relationship Specialty Start Date End Date Unknown, NO ADDRESS/PHONE/FAX AFFILIATED PCP - General 08/16/17 Clinic, Unknown [place] PCP - Primary Care Clinic 08/16/17
--- OUTSIDE RECORDS SUMMARY | 2024-12-03 05:46 | XMS_ITS | Encounter Summary ---
Author Organization [facility] Address [address] [place] [address] Care Team Providers Care Concrete Vibrator Operator Name Role Phone Ino Sheriff APRN, CNP Primary Care Provid er Reason for Visit * Reason Comments ERRONEOUS ENTRY Encounter Details Date Type Department Care Team (Late st Contact Info) Description 11/10/2015 Telephone [facility] [address] [place], [place] [address] Ino Sheriff APRN, ELECTROMAGNET CRANE OPERATOR [address] [place] [address] ERRONEOUS ENTRY Social History Tobacco Use Types Packs/Day Years Used Date Smoking Tobacco: Never Assessed Comments Yes Sex and Gender Information Value Date Recorded Sex Assigned at Not on file Gender Identity Not on file Sexual Orientation Not on file documented as of this encounter Nursing Notes * Sheila Acevedo - 11/10/2015 1:14 PM CST error CTOR OF REHABILITATION AND WELLNESS documented in this encounter Plan of Treatment Not on file documented as of this encounter Visit Diagnoses Not on filedocumented in this encounter Care Teams Concrete Vibrator Operator Relationship Specialty Start Date End Date Ino Sheriff APRN, CNP [address] [place] [address] PCP - General 02/27/13 documented as of this encounter
--- OUTSIDE RECORDS SUMMARY | 2024-12-03 05:47 | XMS_ITS | Referral Summary ---
Author Organization [facility] Address [address] [facility] [place] [address] Care Team Providers Care Digital Marketer Name Role Phone Richard Bustamante MD Unavailable [phone] Janes Franklin MD Unavailable [phone] Francisco Elizalde MD Primary Care Provider Janes Franklin MD Unavailable Allergies Active Allergy Reactions Criticality Noted Date Comments Shellfish Allergy Anaphylaxis High 05/16/2013 Medications Montelukast Sodium (SINGULAIR PO) Activ e Fluticasone-Lukas meterol (ADVAIR DISKUS IN) Active Cetirizine HCl (ZYRTEC PO) Active fluticasone (FLONASE) 50 MCG/ACT nasal spray [place] 2 sprays into both nostrils daily Active [...] School Help Needed Not on file 02/25 Comments No Sex and Gender Information Value Date Recorded Sex Assigned at Not on file Legal Sex Female 8:26 AM EDGE DRUMMER Gender Identity Not on file Sexual Orientation Not on file Last Filed Vital Signs Vital Sign Reading Time Taken Comments Blood Pressure 137/68 04/15/2016 10:00 PM CDT Pulse 73 04/15/2016 8:36 PM CDT Temperature 36.3 C (97.3 F) 04/15/2016 8:36 PM CDT Respiratory Rate 16 04/15/2016 10:0 6 PM [...] Antigen Antibody Combo Nonreactive Blood specimen (specimen) us Patient Reported LAB - BLOOD ORDERABLES Final Re sult from Last 3 Months or Most Recently Relevant to Health Maintenance Care Teams Digital Marketer Relationship Specialty Start Date End Date Francisco Elizalde MD [facility] [address] [place] [address] PCP - General 03/19/24 Richard Bustamante MD [facility] [address] [place] [address] Family Medicine 02/23/24 Janes Franklin MD [address] [place] [address] Ophthalmology 02/29/24 Janes Franklin MD [address] [address] Assigned Surgical Provider 04/21/24
--- OUTSIDE RECORDS SUMMARY | 2024-12-03 05:47 | XMS_ITS | Clinical Summary ---
Author Organization [facility] Address [address] [place] [address] Care Team Providers Care Documentation Designer Name Role Phone Richard Bustamante MD Unavailable [phone] Janes Franklin MD Unavailable Francisco Elizalde MD Primary Care Provider Janes Franklin MD Unavailable [phone] Allergies Active Allergy Reactions Criticality Noted Date Comments Shellfish Allergy Anaphylaxis High 05/16/2013 Medications Montelukast Sodium (SINGULAIR PO) Activ e Fluticasone-Lukas meterol (ADVAIR DISKUS IN) Active Cetirizine HCl (ZYRTEC PO) Active fluticasone (FLONASE) 50 MCG/ACT nasal spray [place] 2 sprays into both nostrils daily Active [...] on file Legal Sex Female 8:26 AM GRAPE CRUSHER Gender Identity Not on file Sexual Orientation [...] ORDERS 1986 GLUCOSE 1986 YEARLY PREVENTIVE VISIT 1989 HEPATITIS C SCREENING 2004 HEPATITIS B IMMUNIZATION (1 of 3 - 19+ 3-dose series) 2005 PAP 2007 COVID-19 Vaccine (3 - 2023- season) 2024 12/25/2020, 11/26/2020 INFLUENZA VACCINE (#1) 2024 9, 07/27/2017, 09/14/2016, Additional history exists PHQ-2 (once per calendar year) 2024 03/20/2024 DTAP/TDAP/TD IMMUNIZATION (5 - Td or Tdap) 10/26/2025 10/26/2015, 04/22/2013, 10/08/2008, Additional history exists ZOSTER IMMUNIZATION (1 of 2) 2036 RSV VACCINE (1 - 1-dose 75+ series) 2061 HPV IMMUNIZATION Completed 03/18/2008, , 05/15/2007 Pneumococcal Vaccine: Pediatrics (0 to 5 Years) and At-Risk Patients (6 to 49 Years) Aged Out 10/08/2008 No longer eligible based on patient's age to complete this topic HIV SCREENING Completed 06/17/2015, 12/07/2012 MENINGITIS IMMUNIZATION Aged Out No l onger [...] Recently Relevant to Health Maintenance Care Teams Documentation Designer Relationship Specialty Start Date End Date Francisco Elizalde MD [facility] [address] [place] [address] PCP - General 03/19/24 Richard Bustamante MD [facility] [address] [place] [address] Family Medicine 02/23/24 Janes Franklin MD [address] [place] [address] Ophthalmology 02/29/24 Janes Franklin MD [address] [id number] Assigned Surgical Provider 04/21/24
[2024-12-03 05:51] VITALS: BP 149/102; PULSE 112; RESP 18; TEMP 36.6; O2SAT 98; BMI 47.2
--- NOTE | 2024-12-03 06:14 | ED_ITS ---
HPI - General Adult General Chief complaint: Arrhythmia/Palpitations Stated complaint: Elevated HR/chest pressure Time Seen by Provider: 12/03/24 05:59 Source: patient and family Mode of arrival: ambulatory Limitations: no limitations History of Present Illness HPI narrative: 4-year-old female presents the emergency department with elevated heart rate, especially on exertion. Patient reports that she started to notice that her heart was beating faster than usual around 7:00 p.m. last night while she was writing emails. A feels just a general heaviness in the chest area associated with this but no significant shortness of breath. She had influenza just a few weeks ago and had a mild persistent cough with this but has a history of asthma and did not think much of it. No trauma or injury. She did start Adderall in October and takes the short-acting version 2 times daily. Her rationale is that the Adderall ?should be out of her system by now?. She has meaning that with the half-life of the medication, it should not be in her system if she last took it late yesterday afternoon. A quick corrective explanation of half lives and medication clearance was initiated. No history of DVT or PE no personal history of arrhythmia. No family history of coagulopathy. No prior history of similar symptoms. She called the nurse line and they advised that she be seen. She is tracking her heart rates, they do come down with rest but quickly jump up to 150 on minimal exertion such as walking around the house. No hemoptysis. No productive cough. Does wear a fitness tracking watch to check on things. Heart rate remained elevated this morning at about 110-120 resting, prompting her to come to the emergency department. Past medical history notable for asthma and allergies. Home medications are al buterol, Adderall 20 mg b.i.d., Flonase, Advair, Claritin and Singulair. She also uses pantoprazole for GERD. Nonsmoker. ROS is notable for the tachycardia only, otherwise denies times 12 systems. Related Data Home Medications ?Medication ?Instructions ?Recorded ?Confirmed albuterol sulfate 2.5 mg/0.5 mL 2.5 mg inhalation .Q4H PRN 07/01/22 12/03/24 solution for nebulization fluticasone propionate 50 1 spray intranasal QDAY 07/01/22 12/03/24 mcg/actuation nasal spray,suspension (Flonase Allergy Relief) ipratropium 0.5 mg-albuterol 3 mg 3 ml inhalation QID PRN 07/01/22 11/19/24 (2.5 mg base)/3 mL nebulization soln multivitamin 1 tab PO QDAY 07/01/22 11/19/24 loratadine 10 mg tablet (Allergy 10 mg PO DAILY 07/13/24 12/03/24 Relief (loratadine)) Previous Rx's ?Medication ?Instructions ?Recorded albuterol sulfate 90 mcg/actuation See Rx Instructions .Route 02/19/24 aerosol inhaler (Ventolin HFA) .COMPLEX #8.5 grams fluticasone 500 mcg-salmeterol 50 1 inh inhalation BID #60 ea 02/19/24 mcg/dose blistr powdr for inhalation (Advair Diskus) montelukast 10 mg tablet 10 mg PO QDAY #90 tabs 02/19/24 pantoprazole 20 mg tablet,delayed 20 mg PO DAILY #90 tabs 10/29/24 release (Protonix) dextroamphetamine-amphetamine 20 See Rx Instructions PO .ud #60 tabs 11/12/24 mg tablet prednisone 20 mg tablet 20 mg PO BID #10 tabs 11/19/24 Allergies Allergy/AdvReac Type Severity Reaction Status Date / Time carrot Allergy Severe Verified 11/19/24 09:37 doxycycline Allergy Severe Rash, Verified 11/19/24 09:37 throat swelling kiwi Allergy Severe throat Verified 11/19/24 09:37 swelling shellfish derived Allergy Severe Anaphylaxis Verified 11/19/24 09:37 iodine Allergy Unknown Unknown Verified 11/19/24 09:37 [facility] Medical History Asthma ?J45.909 - Unspecified asthma, uncomplicated (ICD-10) GERD (gastroesophageal reflux disease) ?K21.9 - Gastro-esophageal reflux disease without esophagitis (ICD-10) ADHD ?F90.9 - Attention-deficit hyperactivity disorder, unspecified type (ICD-10) Dysphagia ?R13.10 - Dysphagia, unspecified (ICD-10) Thyroid nodule ?E04.1 - Nontoxic single thyroid nodule (ICD-10) Obesity ?E66.9 - Obesity, unspecified (ICD-10) Seasonal allergies ?J30.2 - Other seasonal allergic rhinitis (ICD-10) Eye swelling ?H57.89 - Other specified disorders of eye and adnexa (ICD-10) Surgical History History of 2 sections ?Z98.891 - History of uterine scar from previous surgery (ICD-10) Status post hysterectomy ?Z90.710 - Acquired absence of both cervix and uterus (ICD-10) Status post cholecystectomy (09/02/06) ?Z90.49 - Acquired absence of other specified parts of digestive tract (ICD- 10) Status post appendectomy ?Z90.49 - Acquired absence of other specified parts of digestive tract (ICD- 10) Family History Father High cholesterol Mother Depression Other Colon cancer Diabetes Social History What is your current living situation?: I presently have a place to live Problems where you live: no known problems In the past 12 months, utilities in danger of being shut off: no In past 12 months, lack of transportation kept you from medical appts, meetings, work, or getting things needed for daily living: no In the past 12 mos, have been you worried that your food would run out before you had money to buy more?: never true In the past 12 mos, the food you bought just didn't last and you didn't have money to buy more?: never true Smoking Status: Never smoker Non-prescribed substance use: denies use How often does anyone, including family, friends and others, physically hurt you : never How often does anyone, including family, friends and others, insult or talk down to you: never How often does anyone, including family, friends and others, threaten you with harm: never How often does anyone, including family, friends and others, scream or curse at you: never Exam Const: Vital Signs, click to edit/add: Vital Signs - 24 hr 12/03/24 05:51 12/03/24 06:39 12/03/24 07:15 Temperature 97.9 F Pulse Rate [Pulse Oximeter] 112 H 98 98 Respiratory Rate 18 18 Blood Pressure [Ri ght Upper Arm] 149/102 H 130/90 H Pulse Oximetry 98 98 Oxygen Delivery Me thod Room Air Room Air Documenting provider has reviewed patient's vital signs: yes Common normals: no apparent distress and alert General appearance: cooperative and well kempt HENMT: Common normals: normocephalic, moist oral mucous membranes and oropharynx normal Head and scalp: normocephalic Mouth: oral and palatal mucosa normal Eye: Common normals: conjunctivae normal General eye: normal appearance of both eyes Conjunctiva: conjunctiva(e) normal Neck & C-Spine: Common normals: full ROM and no lymphadenopathy Resp: Common normals: normal respiratory effort, no use of accessory muscles and clear to auscultation bilaterally Effort & inspection: able to speak in complete sentences Auscultation: clear to auscultation bilaterally Cardio: Common normals: regular rate, regular rhythm, S1 normal heart sound, S2 normal heart sound and no murmurs Rate: regular rate Rhythm: regular rhythm Heart sounds: S1 normal and S2 normal GI: Common normals: Normal to inspection, nondistended, normoactive bowel sounds present, soft to palpation, non-tender, no hepatosplenomegaly and no masses Palpation: soft and no hepatosplenomegaly Extremity: Common normals: normal to inspection Other: Trace dependent edema but seems symmetric bilaterally. Neuro: Sensorium/orientation: alert Speech: speech normal Motor exam: no movement abnormalities noted Psych: Appearance: well kempt Attitude: engaged Activity/motor behavior: appropriate eye contact Mood and affect: euthymic mood Skin: Common normals: no rashes or lesions noted General skin exam: no rashes or lesions noted Course Course ED Course: 39-year-old female presenting with tachycardia, especially on exertion. Differential diagnosis including arrhythmia, pulmonary embolism, cardiomyopathy, coronary artery disease, asthma exacerbation with cardiac compensation, side effects from the Adderall potentially compound and with underlying acute illness. Counseled patient on recommendations. Will start with monitor and storage bin tender on a nuclear monitoring technician. Blood work including viral panel and D-dimer to look for pulmonary embolism. Chest x-ray. May need CT PA as well. Seems to be in sinus rhythm initially. Reevaluation(s) Time of Reevaluation #1: 07:09 Reevaluation #1: Resting heart rate is around 100. Findings reviewed with patient and significant other. Most of labs are quite reassuring, no signs of overwhelming infection, elevated troponins. We are not seeing any signs of arrhythmia on a nuclear monitoring technician but her D-dimer is mildly elevated. I would recommend that we do a CT PA to look for pulmonary embolism. Rationale was discussed. IV will be placed and then she will undergo that procedure. I anticipate that I will need to hand over care to my coming day shift partner prior to the availability of her results. I have spoken with her dad if the scan is negative for a clot, this could just be an amplified tachycardic response to a mild illness in the setting of use of Adderall or just simply side effects from the Adderall. She might consider a dose adjustment if symptoms persist or discussion with her primary care doctor about how to mitigate the side effects. Time of Reevaluation #2: 07:53 Reevaluation #2: Counseled patient on normal CT findings. No signs of pulmonary embolism. Heart rate remains around 100-105 resting. Counseled that the does not seem to be any dangerous reason for the tachycardia. Most likely she has a mild viral illness and this compound with her Adderall use is making her heart rate baseline higher. We discussed parameters were coming back to the ED including even higher elevated heart rates, significant dyspnea on exertion. Written instructions are provided. Would like for her to send a message to her primary care provider or an in-person follow-up in about a month and update on her new resting heart rate see if symptoms resolve and if she is persistently running higher would consider changes in therapy. We discussed that acutely, this heart rate is not dangerous in the short term but there can be long-term implications to very high heart rate including risk of cardiomyopathy and other problems. I would not be concerned in the short term but would want to make sure that she understands the risk benefit ratio for long-term use. Drink plenty of fluids, written instructions provided, all questions answered. Vital Signs Vital signs: Initial Vital Signs Temperature 97.9 F 12/03/24 05:51 Temperature Source Temporal Artery Scan 12/03/24 05:51 Pulse Rate 112 H 12/03/24 05:51 Respiratory Rate 18 12/03/24 05:51 Blood Pressure 149/102 H 12/03/24 05:51 Blood Pressure Mean 117 H 12/03/24 05:51 Blood Pressure Position Sitting 12/03/24 05:51 Pulse Oximetry 98 12/03/24 05:51 Oxygen Delivery Method Room Air 12/03/24 05:51 Vital Signs Temperature 97.9 F 12/03/24 05:51 Pulse Rate 112 H 12/03/24 05:51 Respiratory Rate 18 12/03/24 05:51 Blood Pressure 149/102 H 12/03/24 05:51 Pulse Oximetry 98 12/03/24 05:51 Oxygen Delivery Method Room Air 12/03/24 05:51 Temperature 97.9 F 12/03/24 05:51 Pulse Rate 98 12/03/24 07:15 Respiratory Rate 18 12/03/24 07:15 Blood Pressure 130/90 H 12/03/24 07:15 Pulse Oximetry 98 12/03/24 07:15 Oxygen Delivery Method Room Air 12/03/24 07:15 Medical Decision Making Lab Data Lab results reviewed: Yes I reviewed the patient's lab results Lab results narrative: Remainder workup reassuring with the exception of a mildly elevated D-dimer Labs: Lab Results 12/03/24 12/03/24 12/03/24 Range/Units 06:10 06:24 06:28 WBC 10.50 (4.50-11.00) K/uL RBC 4.62 (4.00-5.20) m/uL Hgb 12.8 (12.0-16.0) gm/dL Hct 38.3 (33.0-51.0) % MCV 83 (80-100) fL MCH 28 (26-34) pg MCHC 33 (32-36) gm/dL RDW Coeff of Ross 13.3 (11.5-15.5) % Plt Count 177 (140-440) K/uL Neut % (Auto) 76.7 H (42.0-72.0) % Lymph % (Auto) 15.5 L (20-44) % [place] % (Auto) 5.0 (0.0-11.0) % Eos % (Auto) 1.5 (0.0-7.0) % Baso % (Auto) 0.4 (0.0-3.0) % Neut # (Auto) 8.10 H (1.7-7.0) K/uL Lymph # (Auto) 1.60 (0.90-2.90) K/uL [place] # (Auto) 0.50 (0.00-0.90) K/UL Eos # (Auto) 0.16 (0.00-0.50) K/uL Baso # (Auto) 0.04 (0.00-0.30) K/uL Abs Immat Gran (auto) 0.09 (0.00-0.30) K/uL Imm/Tot Granulo (auto) 0.9 % D-Dimer Quant (PE/DVT) 0.72 H (0.00-0.50) ug/ml Sodium 139 (135-149) mmol/L Potassium 3.6 (3.6-5.1) mmol/L Chloride 107 (96-114) mmol/L Carbon Dioxide 24 (20-32) mmol/L Anion Gap 8 (7-15) mEq/L BUN 6 (5-24) mg/dL Creatinine 0.7 (0.5-1.5) mg/dL Estimated Creat Clear 82.23 Estimated GFR 113 ml/min Glucose 109 (60-115) mg/dL Calcium 8.7 (8.4-10.6) mg/dL Troponin I < 0.01 L (0.01-0.04) ng/mL C-Reactive Protein 3.6 H (0.5-1.0) mg/dL NT-Pro-B Natriuret Pep < 20 pg/mL SARS-CoV-2 (PCR) Negative SARS-CoV-2 (Negative) Influenza Type A (PCR) Negative PCR FLU A (Negative) Influenza Type B (PCR) Negative PCR FLU B (Negative) RSV (PCR) Negative PCR RSV (Negative) POC Troponin I 0.00 L (0.01-0.04) ng/ml Imaging Data CT scan - chest: Attestation: I have reviewed the pertinent imaging results. My impression: No signs of pulmonary embolism, infiltrate or cardiomegaly Radiologist's impression: IMPRESSION: No findings of pulmonary embolus. A few dependent and linear opacities are noted consistent with atelectasis. No pleural effusion or pneumothorax. Hepatic steatosis. Surgically absent gallbladder. Please note that all CT scans at this facility use dose modulation, iterative reconstruction, and/or weight-based dosing when appropriate to reduce radiation dose to as low as reasonably achievable. Dictated by Shahram Kennedy MD @ 12/03/2024 7:46:16 AM ECG Data Attestation: I personally reviewed and interpreted this ECG as follows: Prior ECG tracings: not available for review Interpretation: Sinus tachycardia with initial resting rate of 107. Otherwise normal intervals and axis. No significant ST or T-wave abnormalities. Discharge Plan Discharge Clinical Impression: Tachycardia Patient Disposition: Home, Self-Care Condition: Stable Instructions: Tachycardia (ED) Additional Instructions: As we discussed, your tachycardia seems to be the result of your Adderall. There may be a mild viral illness or other contributing factors making this higher than usual. Though it is not dangerous in the acute setting, prolonged tachycardia can lead to long-term structural heart problems. I would recommend that you continue tracking your heart rate and follow up with her primary care doctor within a month to review how your heart rate has been running and determine if your dose needs to be reduced. In the interim, drink plenty of fluids. No restrictions on exercise and activity. He should come back to emergency department if you have loss of consciousness, seizures. You should also come back if your heart rate is persistently over 170 at rest. Activity Level: No Restrictions Discharge Diet: Regular Prescriptions: No Action ipratropium-albuterol 0.5 mg-3 mg(2.5 mg base)/3 mL solution for nebulization 3 ml inhalation QID PRN albuterol sulfate 2.5 mg/0.5 mL solution for nebulization 2.5 mg inhalation .Q4H PRN Rx Instructions: for up to 3 doses fluticasone propionate [Flonase Allergy Relief] 50 mcg/actuation spray,suspension 1 spray intranasal QDAY Rx Instructions: administer into each nostril multivitamin Tablet 1 tab PO QDAY albuterol sulfate [Ventolin HFA] 90 mcg/actuation HFA aerosol inhaler See Rx Instructions .ROUTE .COMPLEX Qty: 8.5 3RF Dose Instruction: INHALE 2 PUFFS EVERY 4 HOURS NEEDED Rx Instructions: INHALE 2 PUFFS EVERY 4 HOURS NEEDED fluticasone propion-salmeterol [Advair Diskus] 500-50 mcg/dose blister with device 1 inh inhalation BID Qty: 60 11RF montelukast 10 mg tablet 10 mg PO QDAY Qty: 90 3RF pantoprazole [Protonix] 20 mg tablet,delayed release (DR/EC) 20 mg PO DAILY Qty: 90 3RF prednisone 20 mg tablet 20 mg PO BID Qty: 10 0RF loratadine [Allergy Relief (loratadine)] 10 mg tablet 10 mg PO DAILY dextroamphetamine-amphetamine 20 mg tablet See Rx Instructions PO .ud Qty: 60 0RF Rx Instructions: 30 mg QAM and 10 mg at noon orally UD; Follow Up/Referrals: Warren Morataya MD [Primary Care Provider] - Stand Alone Forms: Infomous Info Instructions
--- NOTE | 2024-12-03 06:21 | CRLHL7_ITS ---
For Patients: As a result of the Century Cures Act, medical imaging exams and procedure reports are released immediately into your electronic medical record. You may view this report before your referring provider. If you have questions, please contact your health care provider. INDICATION: Tachycardia COMPARISON: February 09, 2023 TECHNIQUE: PA and lateral views of the chest were acquired FINDINGS: TUBES AND LINES: None. HEART AND MEDIASTINUM: The heart size is normal. The mediastinal contour appears normal for patient age. LUNGS AND PLEURAL SPACES: The lungs appear normal.The pleural spaces are unremarkable. OSSEOUS STRUCTURES: Age-appropriate appearance. No acute focal finding. IMPRESSION: No evidence of active pulmonary disease. Dictated by Shahram Kennedy MD @ 12/03/2024 7:01:13 AM (Electronically Signed)
--- OUTSIDE RECORDS SUMMARY | 2024-12-03 06:29 | XMS_ITS | Referral Summary ---
Author Organization [facility] Address [address] [place] [address] Care Team Providers Care Um Nurse Name Role Phone Unknown, Primary Care Provider [...] Plan of Treatment Not on file Insurance [employer] [facility] [place] [id number] [place] [id number] Care Teams Um Nurse Relationship Specialty Start Date End Date Unknown, NO ADDRESS/PHONE/FAX AFFILIATED PCP - General 08/16/17 Clinic, Unknown [place] PCP - Primary Care Clinic 08/16/17
--- OUTSIDE RECORDS SUMMARY | 2024-12-03 06:29 | XMS_ITS | Referral Summary ---
Author Organization [facility] Address [address] [place] [address] Care Team Providers Care Vault Custodian Name Role Phone Richard Bustamante MD Unavailable [phone] Janes Franklin MD Unavailable [phone] Francisco Elizalde MD Primary Care Provider Janes Franklin MD Unavailable [phone] Allergies Active Allergy Reactions Criticality Noted Date Comments Shellfish Allergy Anaphylaxis High 05/16/2013 Medications Montelukast Sodium (SINGULAIR PO) Activ e Fluticasone-Lukas meterol (ADVAIR DISKUS IN) Active Cetirizine HCl (ZYRTEC PO) Active fluticasone (FLONASE) 50 MCG/ACT nasal spray [place] 2 sprays into both nostrils daily Active [...] on file Legal Sex 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
--- OUTSIDE RECORDS SUMMARY | 2024-12-03 06:29 | XMS_ITS | Clinical Summary ---
Author Organization [facility] Address [address] [place] [address] Care Team Providers Care Tube Wrapper Name Role Phone Unknown, Primary Care Provider [...] patient's age to complete this topic Insurance [employer] [facility] [place] [id number] [place] [id number] Care Teams Tube Wrapper Relationship Specialty Start Date End Date Unknown, NO ADDRESS/PHONE/FAX AFFILIATED PCP - General 08/16/17 Clinic, Unknown [place] PCP - Primary Care Clinic 08/16/17
--- OUTSIDE RECORDS SUMMARY | 2024-12-03 06:29 | XMS_ITS | Clinical Summary ---
Author Organization [facility] Address [place], [place] [address] Care Team Providers Care Earth Sciences Professor Name Role Phone Health, Family Primary Care [...] Department Care Team Description 10/26/2024 10:52 AM HUMAN RESOURCES TRAINEE - 10/26/2024 12:14 PM HUMAN RESOURCES TRAINEE Emergency [facility] [address] [place] [address] [place] [...] on file Legal Sex Female 6:49 AM HUMAN RESOURCES TRAINEE Gender Identity Not on file Sexual Orientation [...] Comments Blood Pressure 141/87 10/26/2024 10:59 AM HUMAN RESOURCES TRAINEE Pulse 99 10/26/2024 10:59 AM HUMAN RESOURCES TRAINEE Temperature 36.3 C (97.4 F) 10/26/2024 10:59 AM HUMAN RESOURCES TRAINEE Respiratory Rate 16 10/26/2024 10:59 AM HUMAN RESOURCES TRAINEE Oxygen Saturation 98% 10/26/2024 10:59 AM HUMAN RESOURCES TRAINEE Inhaled Oxygen Concentration - - Weight 117.5 kg (259 lb) 10/26/2024 10:59 AM HUMAN RESOURCES TRAINEE Height 154.9 cm (5' 1) 03/21/2018 1:19 PM CDT Body Mass Index 48.94 03/21/2018 1:19 PM CDT Plan of Treatment Health Maintenance Due Date Last Done Comments HIV for age 15-65 2001 Hepatitis C screening for age 18-79 2004 Pneumococcal series for age 6-49 (1 of 2 - PCV) 2005 Pap test for age 21-65 11/14/2014 2 (Completed [facility]) Tetanus booster 10/08/2018 10/08/2008 BMI (ht and wt on same day) for age 18+ 03/21/2019 03/21/2018, 07/06/2017 Depression screening for age 12+ 03/21/2019 03/21/20 18, 03/21/2018 COVID-19 vaccine series ( season) 2024 12/25/2020, 11/26/2020 Influenza for age 9-49 06/30/2024 Tdap Completed 10/08/2008 Procedures Procedure Name Priority Date/Time Associated Diagnosis Comments XR CHEST 2 VIEWS PA AND LATERAL STAT 10/26/2024 11:31 AM HUMAN RESOURCES TRAINEE Atypical pneumonia Moderate persistent asthma with exacerbation from Last 3 Months Results * XR CHEST 2 VIEWS PA AND LATERAL (10/26/2024 11:31 AM HUMAN RESOURCES TRAINEE) Anatomical Region Laterality Modality CHEST, THORAX, Lung, HEART Compu joanna Radiography 10/26/2024 11:5 3 AM HUMAN RESOURCES TRAINEE Impressions 10/26/2024 11:53 AM HUMAN RESOURCES TRAINEE No acute findings. Dictated by James Franklin MD @ 10/26/2024 11:53:32 AM (Electronically Signed) Narrative 10/26/2024 11:53 AM HUMAN RESOURCES TRAINEE For Patients: As a result of the [...] Resul t from Last 3 Months Insurance [employer] Care Teams Earth Sciences Professor Relationship Specialty Start Date End Date Health, Family PCP - General 07/06/17
--- OUTSIDE RECORDS SUMMARY | 2024-12-03 06:29 | XMS_ITS | Encounter Summary ---
Author Organization [facility] Address [address] [place] [address] Care Team Providers Care Illusionist Name Role Phone Ino Sheriff APRN, CNP Primary Care Provid er Reason for Visit * Reason Comments ERRONEOUS ENTRY Encounter Details Date Type Department Care Team (Late st Contact Info) Description 11/10/2015 Telephone [facility] [address] [place], [place] [address] Ino Sheriff APRN, DIRECTOR OF CASINO [address] [place] [address] ERRONEOUS ENTRY Social History Tobacco Use Types Packs/Day Years Used Date Smoking Tobacco: Never Assessed Comments Yes Sex and Gender Information Value Date Recorded Sex Assigned at Not on file Gender Identity Not on file Sexual Orientation Not on file documented as of this encounter Nursing Notes * Sheila Acevedo - 11/10/2015 1:14 PM CST error ID FLAVOR COMPOUNDER documented in this encounter Plan of Treatment Not on file documented as of this encounter Visit Diagnoses Not on filedocumented in this encounter Care Teams Illusionist Relationship Specialty Start Date End Date Ino Sheriff APRN, CNP [address] [place] [address] PCP - General 02/27/13 documented as of this encounter
--- OUTSIDE RECORDS SUMMARY | 2024-12-03 06:29 | XMS_ITS | Clinical Summary ---
Author Organization [place] Address [address] [facility] [place] [address] Care Team Providers Care Jockey Agent Name Role Phone Richard Bustamante MD Unavailable [phone] Janes Franklin MD Unavailable [phone] Francisco Elizalde MD Primary Care Provider Janes Franklin MD Unavailable [phone] Allergies Active Allergy Reactions Criticality Noted Date Comments Shellfish Allergy Anaphylaxis High 05/16/2013 Medications Montelukast Sodium (SINGULAIR PO) Activ e Fluticasone-Lukas meterol (ADVAIR DISKUS IN) Active Cetirizine HCl (ZYRTEC PO) Active fluticasone (FLONASE) 50 MCG/ACT nasal spray [place] 2 sprays into both nostrils daily Active [...] on file 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
--- OUTSIDE RECORDS SUMMARY | 2024-12-03 06:29 | XMS_ITS | Clinical Summary ---
Author Organization [facility] Address [address] [place] [address] Care Team Providers Care Game Bird Farmer Name Role Phone Ino Sheriff APRN, CNP Primary Care Provid er Source Comments You are receiving this document as you are listed as the primary care provider,follow-up provider, or the patient has been referred to you for consultation.This is in compliance with the Medicare and[facility] Hospital[facility] EHR Incentive Program,which states Providers who transition their patient to another setting of careor provider of care or refers their patient to another provider of care shouldprovide summary care record for each transition of care or referral. VasSol Allergies Active Allergy Reactions Criticality Noted Date [...] Free (3+yrs) 08/16/2012 Influenza IIV4 (Quadrivalent) 0.5mL (57629) 08/30,08/12/2015,09/03/2013 TDAP (BOOSTRIX) 10/26/2015,04/22/2013 Family History Medical [...] CDT FINAL GYNECOLOGICAL CYTOLOGY REPORT Pathology #: [id number] Date Obtained: 07/07/2017 Date Received: 07/10/2017 INTERPRETATION/RESULTS: [...] and false-negative reports may occur. Performed at [address] [address] Jeniffer Salcido MD LAB_[address] [address] * HIV ANTIBODY (06/17/2015 8:37 AM CDT) HIV 1/HIV 2 Non-React Non-Reacti ve HP CONVERSION 06/17/2015 8:37 AM CDT 06/17/2015 4:33 PM CDT Narrative HP CONVERSION - 06/17/2015 11:33 PM CDT Performed at [facility], [facility] [place] [address] Transcriptions 12/08/2016 4:35 AM CSTNotes Recorded by Anahi Loomis APRN, SHAHRAM on 06/18/2015 at 5:35 PMplease send normal results to LD. Pt will be informed at next visit Anahi Loomis APRN, CNP LAB_1 HP CONVERSION from Last 3 Months or Most Recently Relevant to Health Maintenance Care Teams Game Bird Farmer Relationship Specialty Start Date End Date Ino Sheriff APRN, GRAPHIC DESIGN INTERN [address] [facility] [address] [place] [address] PCP - General 02/27/13
[2024-12-03 06:32] LABS: Basophils Absolute Auto 0.04 K/uL (0.00-0.30); Basophils Percent Auto 0.4 % (0.0-3.0); Eosinophils Absolute Auto 0.16 K/uL (0.00-0.50); Eosinophils Percent Auto 1.5 % (0.0-7.0); Hematocrit 38.3 % (33.0-51.0); Hemoglobin* 12.8 gm/dL (12.0-16.0); Immature Granulocytes Abs Auto 0.09 K/uL (0.00-0.30); Immature Granulocytes Pct Auto 0.9 %; Lymphocytes Percent Auto 15.5 % (20-44); Mean Corpuscular HGB Conc 33 gm/dL (32-36); Mean Corpuscular Hemoglobin 28 pg (26-34); Mean Corpuscular Volume 83 fL (80-100); Neutrophils Percent Auto 76.7 % (42.0-72.0); Platelet Count* 177 K/uL (140-440); RDW Coefficient of Variation % 13.3 % (11.5-15.5); Red Blood Count 4.62 m/uL (4.00-5.20)
[2024-12-03 06:39] VITALS: PULSE 98
[2024-12-03 06:43] LABS: Chloride* 107 mmol/L (96-114)
[2024-12-03 06:44] LABS: Potassium* 3.6 mmol/L (3.6-5.1); Sodium* 139 mmol/L (135-149)
[2024-12-03 06:45] LABS: Slide Review Reflex No
[2024-12-03 06:46] LABS: Creatinine* 0.7 mg/dL (0.5-1.5); Est. Creatinine Clearance* 82.23; Estimated Glomerular Filt Rate 113 ml/min
[2024-12-03 06:47] LABS: Anion Gap 8 mEq/L (7-15); Blood Urea Nitrogen* 6 mg/dL (5-24); Calcium* 8.7 mg/dL (8.4-10.6); Carbon Dioxide* 24 mmol/L (20-32); Glucose* 109 mg/dL (60-115)
[2024-12-03 06:50] LABS: C Reactive Protein* 3.6 mg/dL (0.5-1.0)
[2024-12-03 06:51] LABS: D Dimer Quantitative* 0.72 ug/ml (0.00-0.50)
[2024-12-03 07:00] LABS: NT Pro B Type NatriureticPept* < 20 pg/mL
[2024-12-03 07:01] LABS: Troponin I* < 0.01 ng/mL (0.01-0.04)
--- NOTE | 2024-12-03 07:05 | CRLHL7_ITS ---
For Patients: As a result of the Century Cures Act, medical imaging exams and procedure reports are released immediately into your electronic medical record. You may view this report before your referring provider. If you have questions, please contact your health care provider. INDICATION: Tachycardia. Chest pain. Elevated D-dimer. Clinical signs and symptoms of pulmonary embolus COMPARISON: None TECHNIQUE: : CT examination of the chest was performed with the uneventful intravenous administration of 100 cc of Omnipaque 350 while thin axial sections were obtained from above the apices of the lungs to the lung bases. The examination was timed as a pulmonary artery angiogram. Please note that all CT scans at this facility use dose modulation, iterative reconstruction, and/or weight-based dosing when appropriate to reduce radiation dose to as low as reasonably achievable. FINDINGS: : HEART and MEDIASTINUM: The heart size is normal. There is no mediastinal or hilar adenopathy or mass. There is no pericardial effusion. PULMONARY ARTERIAL CIRCULATION: There is no visible intraluminal filling defect to suggest pulmonary embolus. LUNGS and PLEURAL SPACES: A few dependent and linear opacities are noted consistent with atelectasis. The lungs are otherwise unremarkable apparentthere is no pleural effusion, pneumothorax or pleural based mass. VISUALIZED UPPER ABDOMEN: Hepatic steatosis. Surgically absent gallbladder. Otherwise, the limited visualized upper abdominal structures appear normal. OSSEOUS STRUCTURES: Age-appropriate appearance. No acute fracture or destructive process. TUBES and LINES: None. IMPRESSION: No findings of pulmonary embolus. A few dependent and linear opacities are noted consistent with atelectasis. No pleural effusion or pneumothorax. Hepatic steatosis. Surgically absent gallbladder. Please note that all CT scans at this facility use dose modulation, iterative reconstruction, and/or weight-based dosing when appropriate to reduce radiation dose to as low as reasonably achievable. Dictated by Shahram Kennedy MD @ 12/03/2024 7:46:16 AM (Electronically Signed)
[2024-12-03 07:08] LABS: PCR FLU A Negative PCR FLU A (Negative); PCR FLU B Negative PCR FLU B (Negative); PCR RSV Negative PCR RSV (Negative); SARS PCR* Negative SARS-CoV-2 (Negative)
[2024-12-03 07:15] VITALS: BP 130/90; PULSE 98; RESP 18; O2SAT 98
== END 2024-12-03 08:03 | disposition home or self-care (01) ==
PROVIDERS: Emergency Provider Family Medicine; PCP Family Medicine
DX: R00.0 Tachycardia, unspecified (principal)
CPT/HCPCS: 36415; 71046; 71275; 80048; 83880; 84484; 85025; 85379; 86140; 87631; 93005; 99284; 99285; Q9967

== ENCOUNTER 2025-04-11 12:00 | Outpatient (CLI) | payer BC, SELFPAY | END 2025-04-11 12:01 | disposition home or self-care (01) | PROVIDERS: PCP Family Medicine; Visit Provider Family Medicine | DX: E04.1 Nontoxic single thyroid nodule (principal); R53.83 Other fatigue | CPT/HCPCS: 84443; 86038 ==

== ENCOUNTER 2025-07-04 15:03 | Outpatient (CLI) | payer BC, SELFPAY ==
--- NOTE | 2025-07-04 15:00 | CRLHL7_ITS ---
For Patients: As a result of the Century Cures Act, medical imaging exams and procedure reports are released immediately into your electronic medical record. You may view this report before your referring provider. If you have questions, please contact your health care provider. INDICATION: Dysphagia COMPARISON: CT chest 12/03/2024 TECHNIQUE: Quiroz scale and color Doppler images were acquired of the thyroid gland. FINDINGS: The thyroid gland demonstrates mildly heterogeneous echogenicity and has a smooth outer contour. The right lobe measures 4.8 x 1.5 x 1.8 cm and the left lobe measures 5.0 x 1.8 x 1.9 cm in size. The isthmus measures 5 millimeters. There are no suspicious masses or nodules. The color Doppler images demonstrate normal vascularity. There is no evidence of cervical lymphadenopathy or parathyroid mass. IMPRESSION: No thyroid nodule. Dictated by Alex Oropeza MD @ 07/04/2025 4:00:54 PM (Electronically Signed)
== END 2025-07-04 15:04 | disposition home or self-care (01) ==
LOC: US 15:04
PROVIDERS: PCP Family Medicine; Visit Provider Nurse Practitioner Family
DX: E04.1 Nontoxic single thyroid nodule (principal); R13.10 Dysphagia, unspecified
CPT/HCPCS: 76536; 84439; 84443; 84481

== ENCOUNTER 2025-08-02 20:33 | Emergency (ER) | payer BC, SELFPAY ==
--- OUTSIDE RECORDS SUMMARY | 2025-08-02 20:35 | XMS_ITS | Clinical Summary ---
Author Organization [facility] Address [address] [place] [address] Care Team Providers Care Industrial Electrician Journeyman Name Role Phone Unknown, Primary Care Provider [...] Assessment (PHQ-2) 1987 Adult Tetanus Booster 2005 HPV Vaccine (1 - 3-dose SCDM series) 2013 COVID-19 Vaccine (2023-2 5 season) 2025 Influenza Vaccine (#1) 2025 RSV Vaccines (1 - 1-dose 75+ series) 2061 Meningococcal B Vaccine Aged Out No l onger eligible based on patient's age to complete this topic Pneumococcal Vaccine Aged Out No long er eligible based on patient's age to complete this topic Insurance [address] [place] [id number] [facility] [address] [place] [id number] Care Teams Industrial Electrician Journeyman Relationship Specialty Start Date End Date Unknown, NO ADDRESS/PHONE/FAX AFFILIATED PCP - General 08/16/17 Clinic, Unknown [place] PCP - Primary Care Clinic 08/16/17
--- OUTSIDE RECORDS SUMMARY | 2025-08-02 20:35 | XMS_ITS | Encounter Summary ---
[facility] [address] [place] [address] Care Team Providers Care Form Press Operator Name Role Phone Ino Sheriff APRN, CNP Primary Care Provid er Reason for Visit * Reason Comments ERRONEOUS ENTRY Encounter Details Date Type Department Care Team (Late st Contact Info) Description 11/10/2015 Telephone [facility] [address] [place], [place] [phone] Ino Sheriff APRN, APNS [address] [place] [address] ERRONEOUS ENTRY Social History Tobacco Use Types Packs/Day Years Used Date Smoking Tobacco: Never Assessed Comments Yes Sex and Gender Information Value Date Recorded Sex Assigned at Not on file Legal Sex Female 4:46 AM CDT Gender Identity Not on file Sexual Orientation Not on file documented as of this encounter Nursing Notes * Sheila Acevedo - 11/10/2015 1:14 PM CST error RMATION WRITER RMATION WRITER documented in this encounter Plan of Treatment Not on file documented as of this encounter Visit Diagnoses Not on filedocumented in this encounter Care Teams Form Press Operator Relationship Specialty Start Date End Date Ino Sheriff, FLOOD CONTROL ENGINEER, APNS [address] [facility] [place] [address] PCP - General 02/27/13 documented as of this encounter
--- OUTSIDE RECORDS SUMMARY | 2025-08-02 20:35 | XMS_ITS | Clinical Summary ---
Author Organization [facility] Address [facility] [place] [address] Care Team Providers Care Product Lead Name Role Phone Health, Family Primary Care [...] 90 mcg/actuation inhalerIndication s:Asthma with acute exacerbation (HC) Inhale 2 Puffs by mouth every 4 hours if needed. 2 Inhaler 1 5 Active ADVAIR DISKUS 250-50 mcg/dose diskus inhalerIndication s:Asthma with acute exacerbation (HC) INHALE 1 PUFF EVERY 12 HOURS DIRECTED 120 g 12 5 Active fluticasone (50 mcg per actuation) nasal solution (FLONASE) Inhale 2 Sprays into affected nostril(s). Active pantoprazole (PROTONIX) 20 mg tablet Take 1 Tablet by mouth once daily. 4 Active predniSONE (DELTASONE) 20 mg tabletIndications :Moderate persistent asthma with exacerbation (HC) Take 40 mg (2 tabs) daily for 3 days, then 20 mg (1 tab) daily for 3 days, then 10 mg (1/2 tab) daily for 4 days 11 Tablet 4 Active albuterol-ipratro pium (DUONEB) (2.5-0.5 mg) in 3 mL NEBULIZATION solutionIndicatio ns:Moderate persistent asthma with exacerbation (HC) Inhale 3 mL via a nebulizer every 6 hours if needed for Wheezing 1st choice. 75 mL 4 Active Active Problems Problem Noted Date Diagnosed Date Unspecified asthma(493.90) 08/25/2011 Allergic rhinitis, cause unspecified 08/25/2011 Immunizations Immunization Administration Dates Next Due Tdap 10/08/2008 Family [...] on file Legal Sex Female 6:49 AM DATABASE ADMINISTRATION PROJECT MANAGER Gender Identity Not on file Sexual Orientation [...] Comments Blood Pressure 141/87 10/26/2024 10:59 AM DATABASE ADMINISTRATION PROJECT MANAGER Pulse 99 10/26/2024 10:59 AM DATABASE ADMINISTRATION PROJECT MANAGER Temperature 36.3 C (97.4 F) 10/26/2024 10:59 AM DATABASE ADMINISTRATION PROJECT MANAGER Respiratory Rate 16 10/26/2024 10:59 AM DATABASE ADMINISTRATION PROJECT MANAGER Oxygen Saturation 98% 10/26/2024 10:59 AM DATABASE ADMINISTRATION PROJECT MANAGER Inhaled Oxygen Concentration - - Weight 117.5 kg (259 lb) 10/26/2024 10:59 AM DATABASE ADMINISTRATION PROJECT MANAGER Height 154.9 cm (5' 1) 03/21/2018 1:19 PM CDT Body Mass Index 48.94 03/21/2018 1:19 PM CDT Plan of Treatment Health Maintenance Due Date Last Done Comments HIV for age 15-65 2001 Hepatitis C screening for age 18-79 2004 Hepatitis B series for 19+ ( 1 of 3 - 19+ 3-dose series) 2005 Pneumococcal series for age 6-49 (1 of 2 - PCV) 2005 HPV series for age 9-45 (1 - 3-dose SCDM series) 2013 Pap test for age 21-65 11/14/2014 2 (Completed outside of [facility]) Tetanus booster 10/08/2018 10/08/2008 BMI (ht and wt on same day) for age 18+ 03/21/2019 03/21/2018, 07/06/2017 Depression screening for age 12+ 03/21/2019 03/21/20 18, 03/21/2018 COVID-19 vaccine series (2024- season) 2025 12/25/2020, 11/26/2020 Influenza Vaccine (#1) 2025 RSV vaccine for adults or pr egnancy (1 - 1-dose 75+ series) [address] [place] [id number] [employer] [place] Care Teams Product Lead Relationship Specialty Start Date End Date [facility], Family PCP - General 07/06/17
--- OUTSIDE RECORDS SUMMARY | 2025-08-02 20:35 | XMS_ITS | Clinical Summary ---
Author Organization [place] Address [address] [facility] [place] [address] Care Team Providers Care Access Services Assistant Name Role Phone Richard Bustamante MD Unavailable [phone] Janes Franklin MD Unavailable [phone] Francisco Elizalde MD Primary Care Provider Janes Franklin MD Unavailable [phone] Allergies Active Allergy Reactions Criticality Noted Date Comments Shellfish Allergy Anaphylaxis High 05/16/2013 Medications Montelukast Sodium (SINGULAIR PO) Activ e Fluticasone-Lukas meterol (ADVAIR DISKUS IN) Active Cetirizine HCl (ZYRTEC PO) Active fluticasone (FLONASE) 50 MCG/ACT nasal spray [place] 2 sprays into both nostrils daily Active [...] delivery 06/30/2013 12/25/2015 labor 05/16/2013 12/25/2015 Immunizations Immunization Administration Dates Next Due Influenza Vaccine >6 [...] on file 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 Gender Identity Not on file Sexual Orientation [...] 1986 ANNUAL REVIEW OF HM ORDERS 1986 DIABETES SCREENING 1986 YEARLY PREVENTIVE VISIT 1989 HEPATITIS C SCREENING 2004 HEPATITIS B VACCINE (1 of 3 - 19+ 3-dose series) 2005 PAP 2007 PHQ-2 (once per calendar year) 2024 03/20/2024 COVID-19 VACCINE (2024- season) 2025 12/25/2020, 11/26/2020 INFLUENZA VACCINE (#1) 2025 9, 07/27/2017, 09/14/2016, Additional history exists DTAP/TDAP/TD VACCINE (5 - Td or Tdap) 10/26/2025 10/26/2015, 04/22/2013, 10/08/2008, Additional history exists ZOSTER VACCINE (1 of 2) 2036 HPV VACCINE Completed 03/18/2008, 08/30, 05/15/2007 PNEUMOCOCCAL VACCINE: PEDIATRICS (0 to 5 YEARS) AND AT-RISK PATIENTS (6 to 49 YEARS) Aged Out 10/08/2008 No longer eligible based on patient's age to complete this topic HIV SCREENING Completed 06/17/2015, 12/07/2012 MENINGITIS VACCINE Aged Out No longer eligible based on [...] Recently Relevant to Health Maintenance Care Teams Access Services Assistant Relationship Specialty Start Date End Date Francisco Elizalde MD [facility] [address] [place] [address] PCP - General 03/19/24 Richard Bustamante MD [facility] [address] [place] [address] Family Medicine 02/23/24 Janes Franklin MD [address] [place], [place] [id number] Ophthalmology 02/29/24 Janes Franklin MD [address] [phone] Assigned Surgical Provider 04/21/24
--- OUTSIDE RECORDS SUMMARY | 2025-08-02 20:35 | XMS_ITS | Clinical Summary ---
Author Organization [facility] Address [address] [place] [address] Care Team Providers Care Banking Teacher Name Role Phone Ino Sheriff APRN, CNP Primary Care Provid er Source Comments You are receiving this document as you are listed as the primary care provider,follow-up provider, or the patient has been referred to you for consultation.This is in compliance with the Medicare and[facility] Hospitalcaid EHR Incentive Program,which states Providers who transition their patient to another setting of careor provider of care or refers their patient to another provider of care shouldprovide summary care record for each transition of care or referral. sabio labs Allergies Active Allergy Reactions Criticality Noted Date Comments Shellfish-Derived Products Anaphylaxis High 01/23/20 13 Sulfamethoxazole-Trimethoprim Hives High 2013 Medications mometasone (NASONEX) 50 MCG/ACT nasal solution Place 2 sprays into each nostril daily (every 24 hours). 4 Active Multiple Vitamins-Minerals (MULTIVITAMIN ADULT OR) Take 1 tablet by mouth daily (every 24 hours). 6 Active ALBUterol sulfate HFA 108 (90 BASE) MCG/ACT inhalerIndication s:Moderate persistent asthma without complication (HRC) Inhale 2 Puffs every 4 hours as needed for Wheezing. 3 Inhaler 4 6 Active Phentermine HCl 37.5 MG TBDP Active Cetirizine HCl (ZYRTEC ALLERGY OR) Active sertraline (ZOLOFT) 50 MG tablet 7 Active omeprazole (PRILOSEC) 20 MG capsule 7 Active cyclobenzaprine (FLEXERIL) 10 MG tablet Take 10 mg by mouth. 7 Active montelukast (SINGULAIR) 10 MG tabletIndications :Moderate persistent asthma without complication (HRC) Take 1 Tab by mouth daily at bedtime. 90 Tab 7 Active fluticasone-salme terol (ADVAIR DISKUS) 250-50 MCG/DOSE diskus inhalerIndication s:Moderate persistent asthma without complication (HRC) Inhale 1 Puff two times a day. 1 Inhaler 8 Active fluconazole (DIFLUCAN) 150 MG tablet 1 po today then repeat in 2 days 2 Tablet 1 9 Active Active Problems Problem Noted Date Diagnosed [...] Asthma complicating , antepartum 02/05/2013 03/20/2015 Immunizations Immunization Administration Dates Next Due Flu Vac Preserv Free (3+yrs) 08/16/2012 Influenza IIV4 (Quadrivalent) 0.5mL (60117) 08/30,08/12/2015,09/03/2013 TDAP (BOOSTRIX) 10/26/2015,04/22/2013 Family History Medical [...] = 0.6 oz pur e alcohol) rare Comments No Sex and Gender Information Value Date Recorded Sex Assigned at Not on file Legal Sex Female 4:46 AM CDT Gender Identity Not on file Sexual Orientation Not on file 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 Not on file Not o n file Last Filed Vital Signs Vital Sign [...] Services) 1986 Adult Preventive Visit 2004 HepB Vaccine (1) 2005 Cervical Cancer Screening 07/07/20202016, 07/07/2017, 06/17/2015, Additional history exists COVID-19 Vaccine ( season) 2025 12/25/2020, 11/26/2020 Influenza Vaccine (#1) 2025 9, 07/27/2017, 09/14/2016, Additional history exists DTaP/Tdap/Td Vaccine (5 - Tdap) 10/26/2025 10/26/2015, 04/22/2013, 10/08/2008, Additional history exists Zoster/Shingles Vaccine (1 of 2) 2036 HPV Vaccine Completed 03/18/2008, 08/30, 05/15/2007 Pneumococcal Vaccine Aged Out 10/08/2008 No long er eligible based on patient's age to complete this topic HIV Screening (Preventive Services) Completed 06/17/2015, 12/07/2012 HepA Vaccine Aged Out No longer eligi ble based on patient's age to complete this topic Hib Vaccine Aged Out No longer eligi ble based on patient's age to complete this topic IPV (Polio) Vaccine Aged Out No longe r eligible based on patient's age to complete this topic MCV4 Vaccine Aged Out No longer eligi ble based on patient's age to complete this topic Meningococcal B Vaccine Aged Out No l [...] CDT FINAL GYNECOLOGICAL CYTOLOGY REPORT Pathology #: [id number] Date Obtained: 07/07/2017 Date Received: 07/10/2017 INTERPRETATION/RESULTS: [...] and false-negative reports may occur. Performed at [facility], [address] [place] [id number] [place] Jeniffer Salcido MD LAB_1 Final Result Performing Organization Address [facility] de Phone Number PN SOFT [address] [place] [id number] * HIV ANTIBODY (06/17/2015 8:37 AM CDT) HIV 1/HIV 2 Non-React Non-Reacti ve HP CONVERSION 06/17/2015 8:37 AM CDT 06/17/2015 4:33 PM CDT Narrative HP CONVERSION - 06/17/2015 11:33 PM CDT Performed at [facility], [address] [place] [id number] Transcriptions 12/08/2016 4:35 AM CSTNotes Recorded by Anahi Loomis APRN, CNP on 06/18/2015 at 5:35 PMplease send normal results to LD. Pt will be informed at next visit us Anahi Loomis APRN, CNP LAB_1 Fi nal Result Performing Organization Address [facility] de Phone Number HP CONVERSION from Last 3 Months or Most Recently Relevant to Health Maintenance Insurance [employer] [address] [place] [id number] * Guarantor: Santana Castrejon Account Type Relation to Patient Date of Phone Billing Address Personal/Family [address] [place] [id number] Care Teams Banking Teacher Relationship Specialty Start Date End Date Ino Sheriff, CRUDE OIL DRIVER, ONLINE FACILITATOR [address] [place] [id number] PCP - General 02/27/13
[2025-08-02 21:03] VITALS: BP 144/93; PULSE 108; RESP 16; TEMP 37.1; O2SAT 98; BMI 45.7
--- NOTE | 2025-08-02 21:11 | ED.GENADULT ---
HPI - General Adult General Time Seen by Provider: 21:11 Date Seen: 08/02/25 Chief complaint: Hypertension Stated complaint: High Bp, shortness of breath Time Seen by Provider: 08/02/25 21:09 Source: patient Mode of arrival: ambulatory History of Present Illness HPI narrative: Caridad is a 39-year-old female who presents the emergency department for evaluation of elevated blood pressure shortness of breath. Patient reports that she has been on feeling unwell for the past few weeks. Patient reports that approximately 1 month ago she was seen in clinic for fatigue, noted to have elevated blood pressure, and to follow up her thyroid nodules which states everything turned out okay. Patient states that her family has been sick with strep throat and has been treating for antibiotics. Patient reports that she was seen in urgent care on Monday for sore throat, fatigue, and concern for dry/cotton mouth possible thrush. Patient reports her strep with negative, and she was started on nystatin swish and spit for her thrush. Patient reports history of thrush in the past due to her Advair inhaler however states that this seems different. Patient notes that today she started feeling unwell, this morning with generalized fatigue, ongoing sore throat, also reports feeling chest pressure, tingling and numbness, shortness of breath, some nausea/upset stomach. Patient states she did take her blood pressure at home it was 150/110s. 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 as well as some elevated blood pressure. Patient denies any fever, cough, abdominal pain, diarrhea, vomiting, no other complaints. Related Data Home Medications ?Medication ?Instructions ?Recorded ?Confirmed albuterol sulfate 2.5 mg/0.5 mL 2.5 mg inhalation .Q4H PRN 07/01/22 07/30/25 solution for nebulization fluticasone propionate 50 1 spray intranasal QDAY 07/01/22 07/30/25 mcg/actuation nasal spray,suspension (Flonase Allergy Relief) ipratropium 0.5 mg-albuterol 3 mg 3 ml inhalation QID PRN 07/01/22 07/30/25 (2.5 mg base)/3 mL nebulization soln multivitamin 1 tab PO QDAY 07/01/22 07/30/25 loratadine 10 mg tablet (Allergy 10 mg PO DAILY 07/13/24 07/30/25 Relief (loratadine)) Previous Rx's ?Medication ?Instructions ?Recorded albuterol sulfate 90 mcg/actuation See Rx Instructions .Route 02/19/24 aerosol inhaler (Ventolin HFA) .COMPLEX #8.5 grams pantoprazole 20 mg tablet,delayed 20 mg PO DAILY #90 tabs 10/29/24 release (Protonix) fluticasone 500 mcg-salmeterol 50 1 inh inhalation BID #60 ea 04/01/25 mcg/dose blistr powdr for inhalation (Advair Diskus) montelukast 10 mg tablet 10 mg PO QDAY #90 tabs 04/23/25 dextroamphetamine-amphetamine 20 See Rx Instructions PO .ud #60 tabs 07/24/25 mg tablet nystatin 100,000 unit/mL oral 5 ml PO QID 7 days #140 mL 07/30/25 suspension Allergies Allergy/AdvReac Type Severity Reaction Status Date / Time carrot Allergy Severe Verified 08/03/25 00:05 doxycycline Allergy Severe Rash, Verified 08/03/25 00:05 throat swelling kiwi Allergy Severe throat Verified 08/03/25 00:05 swelling shellfish derived Allergy Severe Anaphylaxis Verified 08/03/25 00:05 iodine Allergy Unknown Unknown Verified 08/03/25 00:05 Review of Systems Narrative: Past medical history, past surgical history, medications, allergies, family history, and social history were reviewed with the patient. No additional pertinent items. A medically appropriate review of systems was performed with pertinent positives and negatives noted in HPI, all other systems negative. [facility] Medical History Influenza A ?J10.1 - Influenza due to other identified influenza virus with other respiratory manifestations (ICD-10) Asthma ?J45.909 - Unspecified asthma, uncomplicated (ICD-10) GERD (gastroesophageal reflux disease) ?K21.9 - Gastro-esophageal reflux disease without esophagitis (ICD-10) ADHD ?F90.9 - Attention-deficit hyperactivity disorder, unspecified type (ICD-10) Dysphagia ?R13.10 - Dysphagia, unspecified (ICD-10) Thyroid nodule ?E04.1 - Nontoxic single thyroid nodule (ICD-10) Obesity ?E66.9 - Obesity, unspecified (ICD-10) Seasonal allergies ?J30.2 - Other seasonal allergic rhinitis (ICD-10) Eye swelling ?H57.89 - Other specified disorders of eye and adnexa (ICD-10) Surgical History History of 2 sections ?Z98.891 - History of uterine scar from previous surgery (ICD-10) Status post hysterectomy ?Z90.710 - Acquired absence of both cervix and uterus (ICD-10) Status post cholecystectomy (09/02/06) ?Z90.49 - Acquired absence of other specified parts of digestive tract (ICD-10) Status post appendectomy ?Z90.49 - Acquired absence of other specified parts of digestive tract (ICD-10) Family History Father High cholesterol Mother Depression Other Colon cancer Diabetes Social History What is your current living situation?: I presently have a place to live Problems where you live: no known problems In the past 12 months, utilities in danger of being shut off: no In past 12 months, lack of transportation kept you from medical appts, meetings, work, or getting things needed for daily living: no In the past 12 mos, have been you worried that your food would run out before you had money to buy more?: never true In the past 12 mos, the food you bought just didn't last and you didn't have money to buy more?: never true Smoking Status: Never smoker Non-prescribed substance use: denies use How often does anyone, including family, friends and others, physically hurt you: never How often does anyone, including family, friends and others, insult or talk down to you: never How often does anyone, including family, friends and others, threaten you with harm: never How often does anyone, including family, friends and others, scream or curse at you: never Exam Narrative: Exam Narrative: General: Afebrile, no acute distress HEENT: Normocephalic, atraumatic, conjunctiva normal. TMs clear b/l, Posterior pharynx with no erythema, no exudates, no swelling, no asymmetry. Tongue w/ white/orange patches MMM Neck: non-tender, supple Cardio: regular rate. regular rhythm Resp: Normal work of breathing, no respiratory distress, lungs clear bilaterally, no wheezing, rhonchi, rales Chest/Back: no visual signs of trauma, no midline tenderness, no CVA tenderness Abdomen: soft, non distension, no tenderness, no peritoneal signs Neuro: alert and fully oriented. CN II-XII grossly intact. Grossly normal strength and sensation in all extremities. MSK: no deformities. Normal range of motion Integumentary/Skin: no rash visualized, normal color Psych: normal affect, normal behavior Const: Vital Signs, click to edit/add: Vital Signs - 24 hr 08/02/25 21:03 08/02/25 23:06 Temperature 98.7 F 96.9 F L Pulse Rate [Pulse Oximeter] 108 H 87 Respiratory Rate 16 18 Blood Pressure [Ri ght Upper Arm] 144/93 H 134/84 Pulse Oximetry 98 99 Oxygen Delivery Me thod Room Air Room Air Course Vital Signs Vital signs: Initial Vital Signs Temperature 98.7 F 08/02/25 21:03 Temperature Source Temporal Artery Scan 08/02/25 21:03 Pulse Rate 108 H 08/02/25 21:03 Respiratory Rate 16 08/02/25 21:03 Blood Pressure 144/93 H 08/02/25 21:03 Blood Pressure Mean 110 H 08/02/25 21:03 Blood Pressure Position Sitting 08/02/25 21:03 Pulse Oximetry 98 08/02/25 21:03 Oxygen Delivery Method Room Air 08/02/25 21:03 Vital Signs Temperature 98.7 F 08/02/25 21:03 Pulse Rate 108 H 08/02/25 21:03 Respiratory Rate 16 08/02/25 21:03 Blood Pressure 144/93 H 08/02/25 21:03 Pulse Oximetry 98 08/02/25 21:03 Oxygen Delivery Method Room Air 08/02/25 21:03 Temperature 96.9 F L 08/02/25 23:06 Pulse Rate 87 08/02/25 23:06 Respiratory Rate 18 08/02/25 23:06 Blood Pressure 134/84 08/02/25 23:06 Pulse Oximetry 99 08/02/25 23:06 Oxygen Delivery Method Room Air 08/02/25 23:06 Medications Administered Medications: Discontinued Medications Generic Name Dose Route Start Last Admin Trade Name Freq PRN Reason Stop Dose Admin Sodium Chloride 1,000 mls @ 1,000 mls/hr 08/02/25 21:30 08/02/25 23:17 0.9 % Sodium Chloride 1000 Ml IV 08/02/25 22:29 Infused .Q1H MICHELLE Infusion Ketorolac Tromethamine 15 mg 08/02/25 21:31 08/02/25 21:53 Ketorolac 15 Mg/Ml Inj IVP 08/02/25 21:32 15 mg ONCE ONE Administration Ondansetron HCl 4 mg 08/02/25 21:31 08/02/25 21:53 Ondansetron 2 Mg/Ml Inj IVP 08/02/25 21:32 4 mg ONCE ONE Administration Medical Decision Making MDM Narrative Medical decision making narrative: Caridad is a 39-year-old female who presents the emergency department for evaluation of elevated blood pressure shortness of breath. Upon arrival patient is nontoxic appearing, afebrile, no distress. Patient is slightly tachycardic upon arrival with a heart rate of 108, blood pressure elevated 144/93, oxygen 98% on room air. Differential diagnosis includes but is not limited to viral illness versus URI versus COVID/influenza/RSV versus elevated blood present versus hypertension urgency versus emergency versus cardiac etiology among others. Upon arrival patient was treated with IV Zofran, Toradol, 1 L IV fluid bolus. EKG, comprehensive labs performed. I reviewed EKG which demonstrates normal sinus rhythm with a ventricular rate of 81 beats per minute, normal axis, QTC 406, no acute ischemic change. Comprehensive labs remarkable for mild leukocytosis with white blood cell count 11.62, hemoglobin 13.2, no acute metabolic or electrolyte abnormality, negative troponin, normal BNP, normal TSH, D-dimer elevated at 0.96. Urinalysis with no evidence of acute infection, viral testing negative for COVID/influenza/RSV. I personally reviewed interpreted CT of the chest which demonstrates no definitive pulmonary embolism to the proximal subsegmental level. Limited evaluation more distally. No acute intrathoracic pathology. I discussed results with patient. At this time patient with no tachycardia, no hypoxia, no respiratory distress. Very low likelihood of PE. Suspect likely viral illness. Patient blood pressure did improve while in the emergency department. Patient reports she is noted to be elevated for the past month or 2 so did recommend following up closely with her primary care provider for repeat blood pressure measurement and close monitoring prior to starting on medications. Patient feels comfortable discharge home with continued supportive care. Strict return precautions discussed. Patient understands and agrees the plan. Medical Records Medical records reviewed: Yes I reviewed the patient's medical records Lab Data Lab results reviewed: Yes I reviewed the patient's lab results Labs: Lab Results 08/02/25 08/02/25 08/02/25 Range/Units 21:25 21:30 21:45 WBC 11.62 H (4.50-11.00) K/uL RBC 4.76 (4.00-5.20) m/uL Hgb 13.2 (12.0-16.0) gm/dL Hct 39.8 (33.0-51.0) % MCV 84 (80-100) fL MCH 28 (26-34) pg MCHC 33 (32-36) gm/dL RDW Coeff of [place] 12.9 (11.5-15.5) % Plt Count 208 (140-440) K/uL Neut % (Auto) 74.7 H (42.0-72.0) % Lymph % (Auto) 19.8 L (20-44) % [place] % (Auto) 3.5 (0.0-11.0) % Eos % (Auto) 1.5 (0.0-7.0) % Baso % (Auto) 0.3 (0.0-3.0) % Neut # (Auto) 8.70 H (1.7-7.0) K/uL Lymph # (Auto) 2.30 (0.90-2.90) K/uL [place] # (Auto) 0.40 (0.00-0.90) K/UL Eos # (Auto) 0.20 (0.00-0.50) K/uL Baso # (Auto) 0.00 (0.00-0.30) K/uL Abs Immat Gran (auto) 0.00 (0.00-0.30) K/uL Imm/Tot Granulo (auto) 0.2 % D-Dimer Quant (PE/DVT) 0.96 H (0.00-0.50) ug/ml Sodium 136 (135-149) mmol/L Potassium 3.8 (3.6-5.1) mmol/L Chloride 103 (96-114) mmol/L Carbon Dioxide 26 (20-32) mmol/L Anion Gap 7 (7-15) mEq/L BUN 7 (5-24) mg/dL Creatinine 0.6 (0.5-1.5) mg/dL Estimated Creat Clear 95.93 Estimated GFR 118 ml/min Glucose 93 (60-115) mg/dL Calcium 8.9 (8.4-10.6) mg/dL Total Bilirubin 0.4 (0.1-1.5) mg/dL AST 20 (12-35) U/L ALT 20 (4-35) U/L Alkaline Phosphatase 85 (40-150) U/L Troponin I < 0.01 (0.01-0.04) ng/mL NT-Pro-B Natriuret Pep 28 (See Note) pg/mL Total Protein 7.4 (6.0-8.3) g/dL Albumin 4.1 (3.3-5.0) g/dL TSH 0.578 (0.270-4.200) uIU/mL Urine Color Light yellow (Yellow) Urine Appearance Clear (Clear) Urine pH 7.5 (5.0-8.5) Ur Specific [place] 1.015 (1.000-1.030) Urine Protein Negative (Negative) Urine Glucose (UA) Negative (Negative) Urine Ketones Negative (Negative) Urine Blood Negative (Negative) Urine Nitrite Negative (Negative) Urine Bilirubin Negative (Negative) Urine Urobilinogen 0.2 (0.2-1.0) Ur Leukocyte Esterase Negative (Negative) Urine RBC 0-2 (0-2) Urine WBC 0-2 (0-5) Ur Squamous Epith Cells None (None-Few) Urine Bacteria None (None) Urine HCG, Qual Negative (Negative) SARS-CoV-2 (PCR) Negative SARS-CoV-2 (Negative) Influenza Type A (PCR) Negative PCR FLU A (Negative) Influenza Type B (PCR) Negative PCR FLU B (Negative) RSV (PCR) Negative PCR RSV (Negative) Imaging Data CT scan - chest: Attestation: I have reviewed the pertinent imaging results. Radiologist's impression: FINDINGS: Heart and vasculature: No definite pulmonary embolism through the proximal subsegmental level. Limited evaluation more distally due to suboptimal contrast opacification. Main pulmonary artery normal in caliber. No thoracic aortic aneurysm. No cardiomegaly or pericardial effusion. Normal RV/LV ratio. Lungs and pleura: No focal consolidation. No pleural effusion or pneumothorax. Patent central airways. No suspicious nodule or mass. Lymph nodes/mediastinum: No suspicious lymphadenopathy. Chest wall: No suspicious chest wall mass or fluid collection. No axillary lymphadenopathy. Upper abdomen: No acute abnormality. Bones: No acute abnormality. IMPRESSION: 1. No definite pulmonary embolism to the proximal subsegmental level. Limited evaluation more distally due to suboptimal contrast opacification. 2. No acute intrathoracic pathology appreciated. Please note that all CT scans at this facility use dose modulation, iterative reconstruction, and/or weight-based dosing when appropriate to reduce radiation dose to as low as reasonably achievable. Discharge Plan Discharge Clinical Impression: Elevated blood pressure reading, Shortness of breath Patient Disposition: Home, Self-Care Condition: Stable Additional Instructions: Please follow-up with your primary care provider in the next 5-7 days for further evaluation and follow-up. Please call Monday morning to schedule an appointment. Please continue on medications. Please return to the emergency department if you develop weakness, dizziness, chest pain, shortness of breath, or any worsening symptoms. It was a pleasure taking care of you today. We hope you feel better soon. Prescriptions: No Action ipratropium-albuterol 0.5 mg-3 mg(2.5 mg base)/3 mL solution for nebulization 3 ml inhalation QID PRN albuterol sulfate 2.5 mg/0.5 mL solution for nebulization 2.5 mg inhalation .Q4H PRN Rx Instructions: for up to 3 doses fluticasone propionate [Flonase Allergy Relief] 50 mcg/actuation spray,suspension 1 spray intranasal QDAY Rx Instructions: administer into each nostril multivitamin Tablet 1 tab PO QDAY albuterol sulfate [Ventolin HFA] 90 mcg/actuation HFA aerosol inhaler See Rx Instructions .ROUTE .COMPLEX Qty: 8.5 3RF Dose Instruction: INHALE 2 PUFFS EVERY 4 HOURS NEEDED Rx Instructions: INHALE 2 PUFFS EVERY 4 HOURS NEEDED pantoprazole [Protonix] 20 mg tablet,delayed release (DR/EC) 20 mg PO DAILY Qty: 90 3RF nystatin 100,000 unit/mL suspension 5 ml PO QID 7 Days Qty: 140 0RF Rx Instructions: swish and spit loratadine [Allergy Relief (loratadine)] 10 mg tablet 10 mg PO DAILY fluticasone propion-salmeterol [Advair Diskus] 500-50 mcg/dose blister with device 1 inh inhalation BID Qty: 60 11RF montelukast 10 mg tablet 10 mg PO QDAY Qty: 90 1RF dextroamphetamine-amphetamine 20 mg tablet See Rx Instructions PO .ud Qty: 60 0RF Rx Instructions: 30 mg QAM and 10 mg at noon orally UD; Follow Up/Referrals: Warren Morataya MD [Primary Care Provider, Family Practice] Stand Alone Forms: [employer] Info Instructions
[2025-08-02 21:46] LABS: Appearance Urine Clear (Clear)
[2025-08-02 21:50] LABS: Ur HCG Qualitative* Negative (Negative)
[2025-08-02] MEDS: ONDANSETRON 2 MG/ML inj 4 MG IVP (21:53)
[2025-08-02 22:06] LABS: Hematocrit* 39.8 % (33.0-51.0); Hemoglobin* 13.2 gm/dL (12.0-16.0); Immature Granulocytes Pct Auto 0.2 %; Lymphocytes Absolute Auto 2.30 K/uL (0.90-2.90); Mean Corpuscular HGB Conc 33 gm/dL (32-36); Mean Corpuscular Hemoglobin 28 pg (26-34); Mean Corpuscular Volume 84 fL (80-100); RDW Coefficient of Variation % 12.9 % (11.5-15.5); Red Blood Count* 4.76 m/uL (4.00-5.20); White Blood Count* 11.62 K/uL (4.50-11.00)
[2025-08-02 22:09] LABS: Immature Granulocytes Abs Auto 0.00 K/uL (0.00-0.30); Slide Review Reflex No
[2025-08-02 22:18] LABS: PCR FLU A Negative PCR FLU A (Negative); PCR FLU B Negative PCR FLU B (Negative); PCR RSV Negative PCR RSV (Negative); SARS PCR* Negative SARS-CoV-2 (Negative)
[2025-08-02 22:24] LABS: D Dimer Quantitative* 0.96 ug/ml (0.00-0.50)
[2025-08-02 22:25] LABS: Albumin* 4.1 g/dL (3.3-5.0); Chloride* 103 mmol/L (96-114); Potassium* 3.8 mmol/L (3.6-5.1); Sodium* 136 mmol/L (135-149)
[2025-08-02 22:27] LABS: Blood Urea Nitrogen* 7 mg/dL (5-24); Creatinine* 0.6 mg/dL (0.5-1.5); Est. Creatinine Clearance* 95.93; Estimated Glomerular Filt Rate 118 ml/min
[2025-08-02 22:28] LABS: Alanine Aminotransferase* 20 U/L (4-35); Alkaline Phosphatase* 85 U/L (40-150); Anion Gap 7 mEq/L (7-15); Aspartate Amino Transferase* 20 U/L (12-35); Bilirubin Total* 0.4 mg/dL (0.1-1.5); Calcium* 8.9 mg/dL (8.4-10.6); Carbon Dioxide* 26 mmol/L (20-32); Glucose* 93 mg/dL (60-115); Total Protein* 7.4 g/dL (6.0-8.3)
[2025-08-02 22:50] LABS: NT Pro B Type NatriureticPept* 28 pg/mL (See Note)
--- NOTE | 2025-08-02 23:01 | CRLHL7_ITS ---
For Patients: As a result of the Century Cures Act, medical imaging exams and procedure reports are released immediately into your electronic medical record. You may view this report before your referring provider. If you have questions, please contact your health care provider. INDICATION: Pulmonary embolism (PE) suspected, chest pain and shortness of breath. Hypertension. TECHNIQUE: CT chest PE was acquired with 95 cc Isovue 370 IV contrast. Multiplanar reformats performed including 3D MIP reconstructions. COMPARISON: CTA chest 12/03/2024. FINDINGS: Heart and vasculature: No definite pulmonary embolism through the proximal subsegmental level. Limited evaluation more distally due to suboptimal contrast opacification. Main pulmonary artery normal in caliber. No thoracic aortic aneurysm. No cardiomegaly or pericardial effusion. Normal RV/LV ratio. Lungs and pleura: No focal consolidation. No pleural effusion or pneumothorax. Patent central airways. No suspicious nodule or mass. Lymph nodes/mediastinum: No suspicious lymphadenopathy. Chest wall: No suspicious chest wall mass or fluid collection. No axillary lymphadenopathy. Upper abdomen: No acute abnormality. Bones: No acute abnormality. IMPRESSION: 1. No definite pulmonary embolism to the proximal subsegmental level. Limited evaluation more distally due to suboptimal contrast opacification. 2. No acute intrathoracic pathology appreciated. Please note that all CT scans at this facility use dose modulation, iterative reconstruction, and/or weight-based dosing when appropriate to reduce radiation dose to as low as reasonably achievable. Dictated by Evans Arellano MD @ 08/03/2025 12:24:36 AM (Electronically Signed)
[2025-08-02 23:03] LABS: TSH With Reflex to FT4* 0.578 uIU/mL (0.270-4.200)
[2025-08-02 23:06] VITALS: BP 134/84; PULSE 87; RESP 18; TEMP 36.1; O2SAT 99
[2025-08-03 01:26] VITALS: BP 145/86; PULSE 81; RESP 18; TEMP 36.7; O2SAT 99
[2025-08-03 01:31] VITALS: BP 145/86; PULSE 81; RESP 18; TEMP 36.7
== END 2025-08-03 01:31 | disposition home or self-care (01) ==
PROVIDERS: Emergency Provider Emergency Medicine; PCP Family Medicine
DX: R03.0 Elevated blood-pressure reading, without diagnosis of hypertension (principal); R06.02 Shortness of breath
CPT/HCPCS: 36415; 71275; 80050; 80053; 81001; 81025; 83880; 84443; 84484; 85025; 85379; 87631; 93005; 96361; 96374; 96375; 99285; J1885; J2405; J7030; Q9967

== ENCOUNTER 2025-08-15 11:59 | Outpatient (CLI) | payer BC, SELFPAY | END 2025-08-15 12:00 | disposition home or self-care (01) | LOC: LKVREF 12:00 | PROVIDERS: PCP Family Medicine; Visit Provider Family Medicine | DX: I10 Essential (primary) hypertension (principal) | CPT/HCPCS: 82533 ==

== ENCOUNTER 2025-10-16 15:03 | Outpatient (CLI) | payer BC, SELFPAY ==
--- NOTE | 2025-10-16 15:00 | CRLHL7_ITS ---
For Patients: As a result of the Century Cures Act, medical imaging exams and procedure reports are released immediately into your electronic medical record. You may view this report before your referring provider. If you have questions, please contact your health care provider. Indication: LEFT FLANK PAIN. HX OF STONE YEARS AGO Technique: CT abdomen/pelvis without IV contrast Comparison: CT abdomen/pelvis on January 31, 2012 Findings: Lower thorax: No acute abnormality. Stable benign, sub 4 millimeter, subpleural pulmonary nodules bilaterally. Abdomen/pelvis: Hepatomegaly without focal hepatic lesions. Status post cholecystectomy. No biliary ductal dilatation. The spleen is unremarkable with stable splenules at the splenic hilum. The pancreas and adrenal glands are unremarkable. The kidneys are normal in size. No obvious renal mass/lesion. No renal calculi or hydroureteronephrosis. The bladder is unremarkable. Status post hysterectomy. No suspicious adnexal lesions. No bowel obstruction or inflammation. The appendix is not visualized. Few colonic diverticula. No free air, free fluid, or fluid collections. No abdominopelvic lymphadenopathy. Vasculature is unremarkable. Soft tissue/musculoskeletal: Diastasis recti with tiny fat containing umbilical hernia. The bones are unremarkable. Impression: 1. No CT evidence of an acute process involving the abdomen or pelvis; specifically, no urinary tract calculi or hydroureteronephrosis. 2. Hepatomegaly without focal hepatic lesions. Please note that all CT scans at this facility use dose modulation, iterative reconstruction, and/or weight-based dosing when appropriate to reduce radiation dose to as low as reasonably achievable. Dictated by Joshua Ornelas MD @ 10/16/2025 4:00:50 PM (Electronically Signed)
== END 2025-10-16 15:04 | disposition home or self-care (01) ==
LOC: CT 15:03
PROVIDERS: PCP Family Medicine; Visit Provider Family Medicine
DX: R10.A1 Flank pain, right side (principal); R10.A2 Flank pain, left side; R16.0 Hepatomegaly, not elsewhere classified; K76.9 Liver disease, unspecified
CPT/HCPCS: 74176